=== PATIENT | female | born 1950 | race Caucasian/White ===

== ENCOUNTER 2016-06-03 07:59 | Day surgery (SDC) | payer OTHER, MEDICARE ==
[2016-06-03] VITALS (9 sets, daily range): BP systolic 90–136; BP diastolic 46–69; PULSE 62–72; TEMP 36.7–37; O2SAT 95–99; Ht 154.9 cm; Wt 75.0 kg
[~2016-06-03] VITALS: Ht 154.9 cm; Wt 75.0 kg
[~2016-06-03 07:59] MED LIST: ASPCH81 PO; CYTM5 PO; DICL50TA3 PO; FLAX1CAP11 PO; GLC/500 PO; SYN25 PO; VERA120T15 PO
--- NOTE | 2016-06-03 10:08 | Discharge Instructions ---
Discharge Instructions Procedure Procedure Date: Jun 03, 2016. Reason for visit: Degenerative Disc Disease, Spinal Stenosis. Discharge Discharge Date: Jun 03, 2016. Discharge Diagnosis: Spinal stenosis. Instructions Activity Recommendations: 1 Day-May resume regular activity, 48 Hours of decreased exertion, 1 Day with no exercise/sex/sports Return to School/Work: limitations (light activity x 48 hours) Recommended Home Diet: Resume Previous Diet Provider Instructions: Fluoroscopic guided lumbar puncture is performed at the L4 laminectomy level. Intrathecal positioning was confirmed by return of CSF in the needle. Iodinated contrast was then injected into the thecal sac under fluoroscopic guidance and the patient went for CT myelogram. The procedure was well tolerated and without immediate complication. Allergies Coded Allergies: Indigotindisulfonate (Verified Allergy, Mild, RASH,ITCHING, 06/03/16) Roxanne Babcock Recommendations: Call your doctor if: * Temperature above 101 degrees * Pain not relieved by pain medicine ordered * There is increased drainage or redness from any incision * You have any unanswered questions or concerns. Your Doctors Instructions noted above were prepared by provider Don Jerry. Patient Signature Section: Patient Instructions Signature Page Erica Tavera Patient (or Guardian) Signature/Date: I have read and understand the instructions given to me by my caregivers. Caregiver/RN/Doctor Signature/Date: The above-named patient and/or guardian has received patient instructions on this date. + Original Patient Signature Page (only) stays with chart. Please make copy for patient.
[2016-06-03] MEDS ORDERED: ACETAMINOPHEN 500 MG TAB PO PRN (10:15)
--- NOTE | 2016-06-03 10:15 | DIAGNOSTIC IMAGING REPORT ---
FLUOROSCOPIC GUIDED LUMBAR PUNCTURE CLINICAL HISTORY: Degenerative disc disease. Spinal stenosis. Lumbar radiculopathy. Contrast injection for CT myelogram. PROCEDURE: The risks, benefits, and alternatives to the procedure is discussed with the patient who voiced understanding. Written informed consent was obtained. The patient was placed prone on the fluoroscopy table. The lower back was prepped and draped in the usual sterile fashion. 1% lidocaine was used for local anesthesia. A 20-gauge spinal needle was inserted into the L4 laminectomy space, and intrathecal positioning was confirmed by return of cervical spinal fluid into the hub of the needle. Isovue-200 was then injected into the thecal sac under fluoroscopic guidance which distended normally. The patient tolerated the procedure well. There were no immediate complications. The patient was then transported to CT for CT myelogram and within the observed in the medical treatment unit for further observation. Fluoroscopy time: 0.9 minutes. IMPRESSION: Fluoroscopic guided lumbar puncture with injection of contrast into the thecal sac for CT myelogram. There were no immediate complications. Electronically signed by: Don Jerry M.D. 06/03/2016 10:14 AM Dictated Date/Time: 06/03/2016 10:11 AM
--- NOTE | 2016-06-03 12:33 | DIAGNOSTIC IMAGING REPORT ---
CT MYELOGRAM OF THE LUMBAR SPINE CLINICAL HISTORY: Spinal stenosis. Back pain. Difficulty with ambulation. COMPARISON STUDY: CT mammogram of the lumbar spine dated 02/18/2015. TECHNIQUE: Following the intrathecal administration of iodinated contrast, CT myelogram of the lumbar spine is performed from the lower thoracic spine to the sacrum. Images reviewed in the axial, sagittal, coronal planes. CT DOSE: 783.81 mGy.cm FINDINGS: Lumbar spine: The skeletal structures are osteopenic. Vertebral body height and alignment are maintained throughout the lumbar spine. There is a mild chronic superior endplate compression deformity of T12. There is evidence of laminectomy and posterior fusion at L4-L5. The orthopedic hardware appears intact. There is no evidence of hardware loosening. Interposition bone graft material is noted. The remaining spinous processes and the transverse processes appear intact. There is no evidence of spondylolysis. No lytic or blastic lesions are seen. Anterior osteophytes are seen throughout. Intervertebral discs: There is evidence of discectomy at L5-S1. Mild to moderate degenerative disc space narrowing is seen at L2-L3 and L3-L4. The remaining disc spaces appear preserved. Central canal and spinal cord: The conus medullaris terminates at the level of L1. The nerve roots of the cauda equina are normal as imaged. There is no significant acquired compromise of the central canal. T12-L1: The central canal and neural foramina are widely patent. L1-L2: There is minimal posterior disc bulge eccentric to the right. There is no significant acquired compromise of the central canal. There is mild right-sided subarticular stenosis. The neural foramina are clear. L2-L3: There is a small posterior disc bulge. There is no significant acquired compromise of the central canal. The minimum AP diameter measures 12 mm. There is mild bilateral subarticular stenosis. The neural foramina appear patent. L3-L4: The central canal and neural foramina are patent. Mild facet arthropathy is of no consequence. L4-L5: A posterior osteophyte complex is seen eccentric to the left. The central canal is clear. The osteophyte contributes to left-sided subarticular stenosis. The neural foramina are widely patent. L5-S1: There is a small disc bulge eccentric to the left. The central canal is clear. There is mild left-sided subarticular stenosis. The neural foramina are patent. Mild facet arthropathy is of no consequence. Sacrum and bony pelvis: The imaged sacrum and bony pelvis appear intact. Sclerotic change is noted in the sacroiliac joints. Soft tissues: There is fatty atrophy of the paraspinous musculature. There is mild atherosclerotic calcification of the abdominal aorta which is normal in caliber. IMPRESSION: 1. There is no evidence of disc herniation or central canal stenosis. 2. There are postoperative changes from L4 to L5 spinal fusion. The orthopedic hardware appears intact. 3. Osteopenia and mild spondylotic change as above. See discussion for detailed level by level analysis. 4. A mild chronic superior endplate compression deformity of T12 is unchanged from 2015. Dictated: 06/03/2016 11:18 AM Transcribed: 06/03/2016 12:33 PM [place] Electronically signed by: Don Jerry M.D. 06/03/2016 12:41 PM Dictated Date/Time: 06/03/2016 11:18 AM
[2016-06-28] MEDS ORDERED: MULT-506 PO (13:57)
[2016-06-28] MEDS ORDERED: ERGO500037 PO (13:57)
== END 2016-06-03 14:05 | disposition home or self-care (01) ==
LOC: C.ACU 07:59
PROVIDERS: ATTEND Orthopaedic Surgery Orthopaedic Surgery of the Spine
DX: M51.36 Other intervertebral disc degeneration, lumbar region (principal); M48.06 Spinal stenosis, lumbar region; M54.16 Radiculopathy, lumbar region

== ENCOUNTER → 2016-07-10 | Outpatient (CLI) | payer OTHER, MEDICARE ==
[~2016-07-10] MED LIST changes: -DICL50TA3 PO; +ERGO500037 PO; +MULT-506 PO
[2016-07-10 09:29] LABS: BASO % 0.9 %; BASO ABS # 0.05 K/uL (0-0.2); COMPLETE YES; EOS % 4.3 %; HEMATOCRIT 41.5 % (37-47); IG% 0.2 %; LYMPH % 42.2 %; LYMPH ABS # 2.34 K/uL (1.2-3.4); MEAN CELL VOLUME 89.6 fL (80-100); MEAN CORPUSCULAR HGB CONC 33.5 g/dl (32-36); MEAN PLATELET VOLUME 11.8 fL (7.4-10.4); MONO % 8.1 %; NEUT % 44.3 %; PLATELET COUNT 195 K/uL (130-400); RED BLOOD COUNT 4.63 M/uL (4.2-5.4); WHITE BLOOD COUNT 5.55 K/uL (4.8-10.8)
[2016-07-10 09:50] LABS: ALT/SGPT 20 U/L (12-78); BLOOD UREA NITROGEN 9 mg/dl (7-18); CARBON DIOXIDE 28 mmol/L (21-32); CHLORIDE 108 mmol/L (98-107); CHOLESTEROL 191 mg/dl (0-200); CREATININE 0.81 mg/dl (0.60-1.20); GLUCOSE 88 mg/dl (70-99); POTASSIUM 4.4 mmol/L (3.5-5.1); SODIUM 144 mmol/L (136-145)
[2016-07-10 09:54] LABS: CALCIUM 9.3 mg/dl (8.5-10.1)
[2016-07-10 10:01] LABS: ALB/GLOB RATIO 1.3 (0.9-2); ALKALINE PHOSPHATASE 69 U/L (45-117); AST/SGOT 18 U/L (15-37); CHOLESTEROL/HDL RATIO 2.6; FERRITIN 15.8 ng/ml (8.0-388.0); HDL CHOLESTEROL 73 mg/dl; LDL CHOLESTEROL CALCULATED 97 mg/dl; THYROID STIMULATING HORMONE 0.972 uIu/ml (0.300-4.500); TRIGLYCERIDES 103 mg/dl (0-150); VERY LOW DENSITY LIPOPROT CALC 21 mg/dl
[2016-07-11 06:47] LABS: ESTIMATED AVERAGE GLUCOSE 117 mg/dl; HA1C FLAG Normal (Normal)
--- NOTE | 2016-07-14 10:36 | CODING QUERY MEDICAL NECESSITY ---
CQSUPPORTING DIAGNOSIS NEEDED A supporting diagnosis is required for the test/procedure performed on this patient in order for us to be reimbursed by the patient's insurance. Please provide a supporting diagnosis for the following test/procedure listed below next to the test name along with your signature. *If there is no additional diagnosis for this patient that would support the following test/procedure please document that below next to the test/procedure. Test(s)/Procedure(s) that require a supporting diagnosis: JONATAN 07/10/16 GLYCATED HEMOGLOBIN TEST Provider Signature: Date: Thank you Alma Delia Bonilla [facility] Information Management Once completed, please kindly fax back to [phone] For questions please call [phone]
== END | disposition home or self-care (01) ==
LOC: C.LAB 08:54
PROVIDERS: ATTEND Nurse Practitioner Family
DX: I10 Essential (primary) hypertension (principal); E78.00 Pure hypercholesterolemia, unspecified; E03.9 Hypothyroidism, unspecified; M81.0 Age-related osteoporosis without current pathological fracture; D51.0 Vitamin B12 deficiency anemia due to intrinsic factor deficiency; E88.81 Metabolic syndrome and other insulin resistance; J98.4 Other disorders of lung; E53.8 Deficiency of other specified B group vitamins

== ENCOUNTER → 2017-01-18 | Outpatient (CLI) | payer OTHER, MEDICARE ==
[2017-01-18 11:10] LABS: BLOOD UREA NITROGEN 13 mg/dl (7-18); CREATININE 0.71 mg/dl (0.60-1.20)
== END | disposition home or self-care (01) ==
LOC: C.LABBC 08:02
PROVIDERS: ATTEND Physician Assistant Medical
DX: Z01.812 Encounter for preprocedural laboratory examination (principal)

== ENCOUNTER → 2017-01-25 | Outpatient (CLI) | payer OTHER, MEDICARE ==
[~2017-01-25] MED LIST changes: +GADAVIST IV PRN
--- NOTE | 2017-01-25 09:56 | DIAGNOSTIC IMAGING REPORT ---
MRI LUMBAR SPINE COMBINATION CLINICAL HISTORY: LUMBAGO BILATERAL LEG NUMBNESS. HISTORY OF PRIOR SPINAL SURGERY. TECHNIQUE: Sagittal and axial T1, T2 and STIR images were obtained. COMPARISON STUDY: October 2006 OBSERVATIONS: The vertebral bodies and posterior elements appear intact. There is no abnormal bony signal present to suggest a marrow replacement process. There is an old superior endplate T12 compression fracture. L1-2: No disc protrusions or extrusions. No evidence of spinal canal or neural foraminal compromise. L2-3: There is a minor circumferential disc bulge asymmetric laterally on the left. There is no significant spinal or foraminal stenosis L3-4: There is a minimal circumferential disc bulge. There is no significant spinal or foraminal stenosis L4-5: There are postsurgical changes of a discectomy and interbody fusion. There are postlaminectomy changes. There is posterior fusion with L4 and L5 pedicle screws. There is no recurrent disc herniation. There is no spinal or foraminal stenosis. L5-S1: No disc protrusions or extrusions. No evidence of spinal canal or neural foraminal compromise. The conus medullaris and cauda equina appear normal. Postcontrast images reveal no pathologically enhancing lesions. There is mild ectasia of the infrarenal abdominal aorta which measures 26 mm. IMPRESSION: 1. Mild multilevel spondylitic changes 2. Postsurgical changes at the L4-5 level 3. No evidence of focal disc herniation. No evidence of spinal or foraminal stenosis. Electronically signed by: Juan Desouza M.D. 01/25/2017 9:55 AM Dictated Date/Time: 01/25/2017 9:48 AM
== END | disposition home or self-care (01) ==
LOC: C.MRIBC 08:25
PROVIDERS: ATTEND Physician Assistant Medical
DX: M54.5 Low back pain (principal)

== ENCOUNTER → 2017-02-02 | Outpatient (CLI) | payer OTHER, MEDICARE ==
[~2017-02-02] MED LIST changes: -GADAVIST IV PRN
[2017-02-02 11:04] LABS: BASO % 0.5 %; BASO ABS # 0.03 K/uL (0-0.2); COMPLETE YES; EOS % 3.8 %; HEMATOCRIT 43.2 % (37-47); IG% 0.3 %; LYMPH % 36.2 %; LYMPH ABS # 2.26 K/uL (1.2-3.4); MEAN CELL VOLUME 91.9 fL (80-100); MEAN CORPUSCULAR HEMOGLOBIN 29.8 pg (25-34); MEAN CORPUSCULAR HGB CONC 32.4 g/dl (32-36); MEAN PLATELET VOLUME 12.5 fL (7.4-10.4); MONO % 8.3 %; NEUT % 50.9 %; PLATELET COUNT 205 K/uL (130-400); WHITE BLOOD COUNT 6.25 K/uL (4.8-10.8)
== END | disposition home or self-care (01) ==
LOC: C.LABBC 07:41
PROVIDERS: ATTEND Nurse Practitioner Family
DX: D51.0 Vitamin B12 deficiency anemia due to intrinsic factor deficiency (principal); E53.8 Deficiency of other specified B group vitamins; R22.30 Localized swelling, mass and lump, unspecified upper limb

== ENCOUNTER → 2017-03-08 | Outpatient (CLI) | payer OTHER, MEDICARE ==
[~2017-03-08] MED LIST changes: +ASPI-435 PO; +CHOLPOW PO; +CYAN1DRO SC; +LEVO50TA PO; +LIOT5TAB9 PO; +TRMO115 TOP
== END | disposition home or self-care (01) ==
LOC: C.LABBC 07:37
PROVIDERS: ATTEND Nurse Practitioner Family
DX: E03.9 Hypothyroidism, unspecified (principal)

== ENCOUNTER → 2017-07-21 | Outpatient (CLI) | payer OTHER, MEDICARE ==
[~2017-07-21] MED LIST changes: -ASPI-435 PO; -CHOLPOW PO; -CYAN1DRO SC; -LEVO50TA PO; -LIOT5TAB9 PO; -TRMO115 TOP
[2017-07-21 13:49] LABS: BASO % 0.6 %; BASO ABS # 0.04 K/uL (0-0.2); EOS % 3.6 %; EOS ABS # 0.23 K/uL (0-0.5); HEMATOCRIT 40.4 % (37-47); HEMOGLOBIN 13.3 g/dL (12.0-16.0); IG# 0.01 K/uL (0.00-0.02); LYMPH % 48.5 %; LYMPH ABS # 3.08 K/uL (1.2-3.4); MEAN CELL VOLUME 87.3 fL (80-100); MEAN CORPUSCULAR HEMOGLOBIN 28.7 pg (25-34); MEAN CORPUSCULAR HGB CONC 32.9 g/dl (32-36); MEAN PLATELET VOLUME 12.1 fL (7.4-10.4); MONO % 6.9 %; MONO ABS # 0.44 K/uL (0.11-0.59); NEUT % 40.2 %; NEUT ABS # 2.55 K/uL (1.4-6.5); PLATELET COUNT 185 K/uL (130-400); RED CELL DISTRIBUTION WIDTH CV 14.7 % (11.5-14.5); RED CELL DISTRIBUTION WIDTH SD 46.8 fL (36.4-46.3); WHITE BLOOD COUNT 6.35 K/uL (4.8-10.8)
[2017-07-21 14:06] LABS: T3 FREE 4.51 pg/ml (2.30-4.20)
[2017-07-21 14:11] LABS: ALBUMIN 3.7 gm/dl (3.4-5.0); ALKALINE PHOSPHATASE 89 U/L (45-117); ALT/SGPT 27 U/L (12-78); AST/SGOT 24 U/L (15-37); BLOOD UREA NITROGEN 7 mg/dl (7-18); CALCIUM 8.8 mg/dl (8.5-10.1); CARBON DIOXIDE 28 mmol/L (21-32); CHOLESTEROL 179 mg/dl (0-200); CREATININE 0.76 mg/dl (0.60-1.20); GLUCOSE 86 mg/dl (70-99); LDL CHOLESTEROL CALCULATED 98 mg/dl; POTASSIUM 3.8 mmol/L (3.5-5.1); SODIUM 142 mmol/L (136-145); TOTAL PROTEIN 6.9 gm/dl (6.4-8.2)
== END | disposition home or self-care (01) ==
LOC: C.LABBC 09:41
PROVIDERS: ATTEND Nurse Practitioner Family
DX: I10 Essential (primary) hypertension (principal); E78.00 Pure hypercholesterolemia, unspecified; E03.9 Hypothyroidism, unspecified; M81.0 Age-related osteoporosis without current pathological fracture; D51.0 Vitamin B12 deficiency anemia due to intrinsic factor deficiency; E88.81 Metabolic syndrome and other insulin resistance; E53.8 Deficiency of other specified B group vitamins; K58.0 Irritable bowel syndrome with diarrhea

== ENCOUNTER → 2017-09-22 | Outpatient (CLI) | payer OTHER, MEDICARE ==
[~2017-09-22] MED LIST changes: +ASPI-435 PO; +CHOLPOW PO; +CYAN1DRO SC; +LEVO50TA PO; +LIOT5TAB9 PO; +TRMO115 TOP
== END | disposition home or self-care (01) ==
LOC: C.LAB1850 12:19
PROVIDERS: ATTEND Nurse Practitioner Family
DX: E03.9 Hypothyroidism, unspecified (principal)

== ENCOUNTER → 2017-10-06 | Day surgery (SDC) | payer OTHER, MEDICARE ==
[2017-09-28 12:10] VITALS: Ht 154.9 cm; Wt 68.2 kg
[~2017-10-06] VITALS: Ht 154.9 cm; Wt 68.2 kg
[~2017-10-06] MED LIST changes: -ASPCH81 PO; -CYTM5 PO; +LIDOCAINE HCL 2% 2 ML VIAL (20MG/ML) ONE; +PROPOFOL IV EMULSION 10 MG/ML 20 ML VIAL ONE; +SODIUM CHLORIDE 0.9% 500ML 500 ML IV ONE; -SYN25 PO
--- NOTE | 2017-10-06 13:40 | Endo History and Physical ---
History & Physical Date of Service: Oct 06, 2017. Chief Complaint: Diarrhea Referring Physician: MARIALUISA Harris History of Present Illness 67 yo CF who presents for colonoscopy secondary to diarrhea. Past Medical History Diabetes, Arthritis, Hypertension, COPD, Thyroid Disease Past Surgical History Hx Cardiac Surgery: No Hx Internal Defibrillator: No Hx Pacemaker: No Hx Abdominal Surgery: Yes (hyster, appy, mata, x 2, oopherectomy ( unsure which side)) Hx of Implantable Prosthesis: No Hx Post-Op Nausea and Vomiting: No Hx Cancer Surgery: Yes (skin cancer) Hx Thoracic Surgery: No Hx Orthopedic: Yes (lumbar sx) Hx Urinary Tract Surgery: No Family History None Social History Smoking Status: Never Smoker Hx Substance Use: No Hx Alcohol Use: No Allergies Coded Allergies: Indigotindisulfonate (Verified Allergy, Mild, RASH,ITCHING, 09/28/17) Current Medications Reported Home Medications Medications Dose Route/Sig Max Daily Dose Days Date Category Vitamin B12 (Cyanocobalamin) 3,000 Mcg/Ml Brennon 1 Ml SC MONTHLY 09/28/17 Reported Triamcinolone Acetonide (Triamcinolone Acet) 45 Appln/15 Gm Oint 1 Appln TOP BID 09/28/17 Reported Cholestyramine (Cholestyramine (Bulk)) 1 Pow Pow 4 Gm PO DAILY 09/28/17 Reported Synthroid (Levothyroxine Sodium) 50 Mcg Tab 50 Mcg PO DAILY 09/28/17 Reported Liothyronine Sodium 5 Mcg Tab 1 Tab PO DAILY 09/28/17 Reported Aspirin 81 (Aspirin) 81 Mg Tab 1 Tab PO DAILY 09/28/17 Reported Multivitamin (Multivitamins) Tab 1 Tab PO DAILY 06/28/16 Reported Vitamin D 06601 Unit (Ergocalciferol) 50,000 Unit Cap 1 Cap PO WK 28 06/28/16 Reported Flax Seed Oil (Flaxseed (Linseed)) 1 Cap Cap 1 Cap PO BID 05/18/15 Reported Glucophage (Metformin Hcl) 500 Mg Tab 500 Mg PO BID 05/18/15 Reported Calan (Verapamil HCl) 120 Mg Tab 120 Mg PO BID 06/25/10 Reported Vital Signs Weight (Kilograms): 68.18 Height (Feet): 5 Height (Inches): 1 Date Time Temp Pulse Resp B/P (MAP) Pulse Ox O2 Delivery O2 Flow Rate FiO2 10/06/17 13:11 36.9 54 16 134/73 (93) 97 Room Air Physical Exam General Appearance: WD/WN, no apparent distress Respiratory/Chest: Auscultation: breath sounds normal Cardiovascular: Heart Auscultation: RRR Abdomen: Bowel Sounds: normal Inspection & Palpation: soft, non-distended, no tenderness, guarding & rebound Assessment and Plan Assessment: 67 yo CF who presents for colonoscopy secondary to diarrhea. Plan: Proceed with colonoscopy.
--- NOTE | 2017-10-06 14:06 | Discharge Instructions ---
Endoscopy Patient Instructions Date / Procedure(s) Performed Oct 06, 2017. Colonoscopy Allergy Information Coded Allergies: Indigotindisulfonate (Verified Allergy, Mild, RASH,ITCHING, 09/28/17) Discharge Date / Findings Oct 06, 2017. Internal hemorrhoids Random colon biopsies Medication Instructions Stopped Medication(s): Patient was told to take her 2 thyroid pills and her verapamil. Internal hemorrhoids Random colon biopsies Provider Instructions Activity Restrictions - No exercising or heavy lifting for 24 hours. - Do not drink alcohol the day of the procedure. - Do not drive a car or operate machinery until the day after the procedure. - Do not make any important decisions or sign important papers in 24 hours after the procedure. Following Day: - Return to full activity which may include returning to work/school. Diet Start your diet with liquids and light foods (jello, soup, juice, toast). Then eat your usual diet if not nauseated. Treatment For Common After Affects For mild abdominal pain, bloating, or excessive gas: - Rest - Eat lightly - Lie on right side Follow-Up Information Follow-up with MARIALUISA Harris as scheduled Anesthesia Information What You Should Know You have had a procedure that required some medicine to reduce anxiety and discomfort. This treatment is called moderate sedation. After receiving the treatment, you may be sleepy, but you will be able to breathe on your own. The effects of the treatment may last for several hours. Follow these instructions along with Activity/Diet recommendations noted above: * Do NOT do anything where dizziness or clumsiness would be dangerous. * Rest quietly at home today, then you can be up and about tomorrow. * Have a responsible person stay with you the rest of today. * You may have had an I.V. today. If so, you may take the dressing off later today. Recommendations Call your doctor if: * Trouble breathing * Continuous vomiting for more than 24 hours * Temperature above 101 degrees * Severe abdominal pain or bloating * Pain not relieved by pain medicine ordered * There is increased drainage or redness from any incision * A large amount of rectal bleeding greater than 2-3 tablespoons. (If you had a polyp/s removed or have hemorrhoids, a small amount of blood - from the rectum is to be expected.) * You have any unanswered questions or concerns. IN THE EVENT OF A SERIOUS EMERGENCY, GO TO THE NEAREST EMERGENCY ROOM Your discharge instructions were prepared by provider Gilmer Green. Patient Instructions Signature Page Erica Tavera Patient (or Guardian) Signature/Date: I have read and understand the instructions given to me by my caregivers. Caregiver/RN/Doctor Signature/Date: The above-named patient and/or guardian has received patient instructions on this date. + Original Patient Signature Page (only) stays with chart. Please make copy for patient.
--- NOTE | 2017-10-06 14:11 | GI REPORT ---
Patient Name: Erica Tavera Procedure Date: 10/06/2017 1:47 PM Date of : 1950 Admit Type: Outpatient Age: 67 Gender: Female Attending MD: Gilmer Green DO Procedure: Colonoscopy Providers: Gilmer Green DO Referring MD: Dorcas Schultz Indications: Chronic diarrhea Medicines: Monitored Anesthesia Care Complications: No immediate complications. Estimated Blood Loss: Estimated blood loss: none. Procedure: Pre-Anesthesia Assessment: - Prior to the procedure, a History and Physical was performed, and patient medications and allergies were reviewed. The patient's tolerance of previous anesthesia was also reviewed. The risks and benefits of the procedure and the sedation options and risks were discussed with the patient. All questions were answered, and informed consent was obtained. Prior Anticoagulants: The patient has taken aspirin, last dose was 2 days prior to procedure. ASA Grade Assessment: III - A patient with severe systemic disease. After reviewing the risks and benefits, the patient was deemed in satisfactory condition to undergo the procedure. After I obtained informed consent, the scope was passed under direct vision. Throughout the procedure, the patient's blood pressure, pulse, and oxygen saturations were monitored continuously. The scope was introduced through the anus and advanced to the terminal ileum. The colonoscopy was performed without difficulty. The patient tolerated the procedure well. The quality of the bowel preparation was good. The terminal ileum, ileocecal valve, appendiceal orifice, and rectum were photographed. Findings: The perianal and digital rectal examinations were normal. Non-bleeding internal hemorrhoids were found during retroflexion. The hemorrhoids were small. Several random biopsies were obtained with cold forceps for histology in the entire colon. Impression: - Non-bleeding internal hemorrhoids. - Several random biopsies were obtained in the entire colon. Recommendation: - Resume previous diet. - Continue present medications. - Repeat colonoscopy for surveillance based on pathology results. - Return to primary care physician as previously scheduled. Gilmer Green DO 10/06/2017 2:10:16 PM This report has been signed electronically. Note Initiated On: 10/06/2017 1:47 PM Number of Addenda: 0 I attest to the content of the Intraoperative Record and orders documented therein, exceptions below {[id number]}
--- NOTE | 2017-10-06 14:20 | Anesthesiology Progress Note ---
Anesthesia Post Op Note Date & Time Oct 06, 2017 at 14:20 Vital Signs Pain Intensity: 0 Vital Signs Past 12 Hours Date Time Temp Pulse Resp B/P (MAP) Pulse Ox O2 Delivery O2 Flow Rate FiO2 10/06/17 14:11 60 16 109/58 (75) 96 Room Air 10/06/17 13:11 36.9 54 16 134/73 (93) 97 Room Air Notes Mental Status: alert / awake / arousable, participated in evaluation Pt Amnestic to Procedure: Yes Nausea / Vomiting: adequately controlled Pain: adequately controlled Airway Patency, RR, SpO2: stable & adequate BP & HR: stable & adequate Hydration State: stable & adequate Anesthetic Complications: no major complications apparent
[2017-10-06 14:40] VITALS: BP 128/69; PULSE 50; O2SAT 98
== END | disposition home or self-care (01) ==
LOC: C.GI 11:31
PROVIDERS: ATTEND Internal Medicine
DX: R19.7 Diarrhea, unspecified (principal); K64.8 Other hemorrhoids; I10 Essential (primary) hypertension; E11.9 Type 2 diabetes mellitus without complications; M19.90 Unspecified osteoarthritis, unspecified site; J44.9 Chronic obstructive pulmonary disease, unspecified; E07.9 Disorder of thyroid, unspecified; Z90.49 Acquired absence of other specified parts of digestive tract; Z90.710 Acquired absence of both cervix and uterus; Z85.828 Personal history of other malignant neoplasm of skin; Z79.82 Long term (current) use of aspirin

== ENCOUNTER 2019-04-04 05:05 | Inpatient (IN) ==
--- NOTE | 2019-03-08 08:17 | PAT Medication Instructions ---
Medication Instructions Date of Service March 08, 2019 Home Medications Medication Instructions Recorded ergocalciferol (vitamin D2) 50,000 50,000 units PO WEEKLY #5 cap 11/14/18 unit capsule metformin 500 mg tablet 500 mg PO BID #180 tab 01/21/19 verapamil 120 mg tablet,extended 120 mg PO BID #180 tab 01/21/19 release aspirin 81 mg tablet,delayed release 81 mg PO DAILY flaxseed oil 1,000 mg capsule 1,000 mg PO BID cholestyramine 4 gram powder for susp in a packet 4 gm PO QAM naproxen 500 mg tablet 500 mg PO BID PRN ergocalciferol (vitamin D2) 50,000 unit capsule 50,000 units PO WEEKLY metformin 500 mg tablet 500 mg PO BID verapamil 120 mg tablet,extended release 120 mg PO BID ferrous sulfate [Slow Release Iron] 140 mg PO DAILY levothyroxine 50 mcg PO QAM liothyronine 5 mcg PO QAM multivitamin 1 cap PO DAILY ASK your surgeon for instructions naproxen 500 mg tablet 500 mg PO BID PRN STOP taking 2 weeks before surgery If surgery is within 2 weeks, stop taking as soon as possible. flaxseed oil 1,000 mg capsule 1,000 mg PO BID STOP taking 48 hours before surgery cholestyramine 4 gram powder for susp in a packet 4 gm PO QAM DO NOT take the morning of surgery aspirin 81 mg tablet,delayed release 81 mg PO DAILY ergocalciferol (vitamin D2) 50,000 unit capsule 50,000 units PO WEEKLY metformin 500 mg tablet 500 mg PO BID ferrous sulfate [Slow Release Iron] 140 mg PO DAILY multivitamin 1 cap PO DAILY Take morning of surgery With a small sip of water, OTHERWISE NOTHING TO EAT OR DRINK AFTER MIDNIGHT: aspirin 81 mg tablet,delayed release 81 mg PO DAILY verapamil 120 mg tablet,extended release 120 mg PO BID levothyroxine 50 mcg PO QAM liothyronine 5 mcg PO QAM Take evening before surgery metformin 500 mg tablet 500 mg PO BID verapamil 120 mg tablet,extended release 120 mg PO BID Insulin Dependent Diabetic Patients * Test your blood sugar the morning of surgery * If Blood Sugar is GREATER THAN 150, take HALF of your regular dose of: * If Blood Sugar is LESS THAN 150, DO NOT TAKE ANY: Other Notes If you have any questions please call us at [phone] or [phone] or [phone] or [phone]
--- NOTE | 2019-03-08 15:19 | Anesthesiology Consultation ---
Date of Service March 08, 2019 Assessment & Plan (1) Encounter for pre-operative examination: Chart Review Chart Review: Acceptable Risk for Surgery and Patient seen in Pre Admission Testing Teaching & Discussion Instructed NPO after midnight before surgery, except medications with 15 cc of water. Medication instructions provided according to the PAT guidelines. History Surgery Operation Date: 04/04/19 07:15 Proposed Procedures p Left Total Hip Arthroplasty - jB Godwin MD Height/Weight Height: 5 ft Weight: 63.6 kg Allergies Allergy/AdvReac Type Severity Reaction Status Date / Time indigotindisulfonic acid Allergy Unknown RASH,ITCHIN Verified 03/01/19 08:13 G Medications Home Medications Medication Instructions Recorded Confirmed Last Taken aspirin 81 mg tablet,delayed 81 mg PO DAILY 07/13/18 03/01/19 Unknown release flaxseed oil 1,000 mg capsule 1,000 mg PO BID 08/10/18 03/01/19 Unknown cholestyramine (with sugar) 4 gram 4 gm PO QAM #1 ea 11/13/18 03/01/19 Unknown powder for susp in a packet naproxen 500 mg tablet 500 mg PO BID PRN 11/13/18 03/01/19 Unknown ergocalciferol (vitamin D2) 50,000 50,000 units PO WEEKLY #5 cap 11/14/18 03/01/19 Unknown unit capsule metformin 500 mg tablet 500 mg PO BID #180 tab 01/21/19 03/01/19 Unknown verapamil 120 mg tablet,extended 120 mg PO BID #180 tab 01/21/19 03/01/19 Unknown release ferrous sulfate [Slow Release Iron] 140 mg PO DAILY 03/01/19 03/01/19 Unknown levothyroxine 50 mcg PO QAM 03/01/19 03/01/19 Unknown liothyronine 5 mcg PO QAM 03/01/19 03/01/19 Unknown multivitamin 1 cap PO DAILY 03/01/19 03/01/19 Unknown Past Medical History Medical History (Updated 03/11/19 @ 09:24 by Kristopher Tse) Family history of reaction to anesthesia SON HAD REACTION TO ANESTHESIA DURING WISDOM TEETH PROCEDURE (DETAILS UNKNOWN) IN DENTAL OFFICE, HAD TO STOP PROCEDURE AND R/S FOR OUTPATIENT PROCEDURE (DONE [facility] - 20 YRS AGO ) Hiatal hernia (Chronic) PT DENIES History of basal cell carcinoma (Chronic) History of SCC (squamous cell carcinoma) of skin (Resolved) Hypertension (Chronic) Hypothyroidism (Chronic) HASHIMOTOS Insulin resistance Irritable bowel syndrome with diarrhea (Chronic) Osteoarthritis (Chronic) Palpitations (Resolved) Peripheral neuropathy (Chronic) R LEG CHRONIC Pernicious anemia (Chronic) CHRONIC ANEMIA SOB (shortness of breath) WHEN B12 IS LOW Vitamin B12 deficiency (Chronic) Exercise / Class Metabolic Activity II 4-5 Yardwork/Stairs/Walk up hill (Denies CP or SOB with 1 FOS, just limited by leg pain) Past Family History Family History Son Diabetes Mother Lung cancer Sister Malignant melanoma Past Surgical History Surgical History History of appendectomy (Resolved) History of section (Resolved) History of cholecystectomy (Resolved) History of colonoscopy History of hysterectomy (Resolved) History of laparoscopy (Resolved) History of lumbar fusion (Resolved) L4-5 Past Anesthesia History No Hx of Anesthesia Complications See note above re: son. Patient is unsure of details. Patient has had GA without issues. Aliza august @ [facility] 2011 = Smooth IV induction with MAC 3, grade view I, ETT 7.0 History of PONV No Hx of PONV and No Hx of Motion Sickness Social History Smoking Status: Never smoker Do You Dip or Chew Tobacco: No Hx Alcohol Use: No Hx Substance Use: No substance use type: does not use Review of Systems Pt denies any recent chest pain, shortness of breath, palpitations, cough, fever or URI. Physical Exam Vital Signs BP: 123/72 P: 69bpm SPO2: 96% RA T: 98.3 F R: 16 ENMT Mouth: + dental restorations (few crowns on molars); no chipped teeth and no loose teeth Thyromental Distance: > or= 3.5 Finger Breadths (3.5) Mallampati Class: II Neck normal visual inspection and + limited neck extension Respiratory normal respiratory effort Auscultation: lungs clear to auscultation bilaterally Cardiovascular Rate/Rhythm: regular rate and regular rhythm (with occ ectopic beats) Heart Sounds: no murmur Vessels: no carotid bruit Extremities: no edema Testing Laboratory Results 03/08/19 15:04 03/08/19 15:02 PT 10.1 Seconds (9.0-12.0) 03/08/19 15:04 INR 1.0 (0.9-1.1) 03/08/19 15:04 APTT 27.7 Seconds (21.0-31.0) 03/08/19 15:04 Hemoglobin A1c 5.5 % (4.5-5.6) 03/08/19 15:04 Urine Color Yellow 03/08/19 15:04 Urine Appearance Clear (Clear) 03/08/19 15:04 Urine pH 5.5 (4.5-7.5) 03/08/19 15:04 Ur Specific [place] 1.015 (1.000-1.030) 03/08/19 15:04 Urine Protein Negative (Negative) 03/08/19 15:04 Urine Glucose (UA) Negative (Negative) 03/08/19 15:04 Urine Ketones Negative (Negative) 03/08/19 15:04 Urine Nitrite Negative (Negative) 03/08/19 15:04 Ur Leukocyte Esterase Negative (Negative) 03/08/19 15:04 Blood Type O Positive 03/08/19 15:04 Antibody Screen NEGATIVE 03/08/19 15:04 03/08/19 15:04 Urine Culture - Final Urine,Clean Catch No growth - less than 1,000 colonies/mL. Electrocardiogram Date: 03/08/19 Findings: + SB @ (57bpm with PACs) Otherwise normal EKG. Compared to EKG from 01/07/10, PACs are now present.
[2019-03-08 15:55] LABS: Appearance Urine Clear (Clear); Basophils # (auto) 0.04 K/uL (0-0.2); Basophils % (auto) 0.5 %; Bilirubin Urine Negative (Negative); Blood Urine Negative (Negative); Color Urine Yellow; Eosinophils # (auto) 0.22 K/uL (0-0.5); Eosinophils % (auto) 2.5 %; Glucose Urine UA Negative (Negative); Hematocrit (blood only) 37.9 % (37-47); Hemoglobin 12.2 g/dL (12.0-16.0); Immature Granulocytes # (auto) 0.02 K/uL (0.00-0.02); Immature Granulocytes % (auto) 0.2 %; Ketones Urine Negative (Negative); Leukocyte Esterase Urine Negative (Negative); Lymphocytes # (auto) 3.45 K/uL (1.2-3.4); Mean Corpuscular Hemoglobin 29.6 pg (25-34); Mean Corpuscular Hgb Conc 32.2 g/dL (32-36); Mean Platelet Volume 12.2 fL (7.4-10.4); Monocytes # (auto) 0.63 K/uL (0.11-0.59); Monocytes % (auto) 7.3 %; Neutrophils # (auto) 4.27 K/uL (1.4-6.5); Neutrophils % (auto) 49.5 %; Nitrite Urine Negative (Negative); Platelet Count 215 K/uL (130-400); Protein Urine Negative (Negative); RDW Coefficient of Variation 13.8 % (11.5-14.5); RDW Standard Deviation 46.3 fL (36.4-46.3); Red Blood Count 4.12 M/uL (4.2-5.4); Specific Gravity Urine 1.015 (1.000-1.030); Urobilinogen Urine Negative (Negative); White Blood Count 8.63 K/uL (4.8-10.8); pH Urine 5.5 (4.5-7.5)
[2019-03-08 15:58] LABS: Albumin Level 3.8 gm/dl (3.4-5.0); BUN Creatinine Ratio 16.2 (10-20); Calcium 9.5 mg/dl (8.5-10.1); Creatinine Clr Calc Pharmacy 55.9 ml/min; Est GFR (African American) 89.3; Potassium 3.6 mmol/L (3.5-5.1)
[2019-03-08 16:01] LABS: Albumin Globulin Ratio 1.3 (0.9-2); Bilirubin,Total 0.4 mg/dl (0.2-1); Total Protein 6.8 gm/dl (6.4-8.2)
[2019-03-08 16:08] LABS: Partial Thromboplastin Time 27.7 Seconds (21.0-31.0); Prothrombin Time 10.1 Seconds (9.0-12.0)
--- NOTE | 2019-03-08 16:43 | History & Physical Report ---
Date of Service March 08, 2019 Assessment & Plan (1) Osteoarthritis of left hip: DIAGNOSIS: Left hip osteoarthritis. PROCEDURE: Left total hip arthroplasty. PLAN: The patient is scheduled to undergo this procedure at the [facility] as an inpatient with Dr. Bj Godwin on 04/04/2019. Risks and complications of the procedure such as infection, bleeding, pain, scarring, nerve and blood vessel damage, weakness, wound problems, stiffness, incomplete relief of symptoms, hardware failure, hardware loosening, wear, fracture, tendon or ligament injury, dislocation, leg length inequality, blood clots, embolism, heart attack, stroke and were explained to the patient at her visit by Dr. Godwin today. Informed consent to perform the procedure was obtained. We will also obtain a preoperative medical clearance from the patient's primary care provider, MARIALUISA Harris. She has an appointment with Carlos on 03/20. I did provide her with orders to obtain a CBC with differential, complete metabolic panel, PT, INR, blood type and screen, urinalysis, urine culture, EKG, hemoglobin A1c and a nasal culture for MRSA before her pre-anesthesia appointment at the hospital today at 2:30. I advised her that we will provide her with prescriptions for narcotic pain medication and anti-inflammatory medication. We will have her increase her daily aspirin to twice daily for 30 days postoperatively and discussed supplementation with extra strength Tylenol for pain control following surgery. The patient states she has a walker, she will bring with her on the day of surgery. She also states that she may have a hip kit at home from her mother. I went over discharge planning with the patient. We reviewed her packet in regards to hip replacement surgery. I discussed using antibiotics before dental procedures after joint replacement surgery. I also provided her with information about lectures offered by [facility] in regards to arthroplasty. The patient states she has a handicap placard for her car, does not need a new one. She will be scheduled for her 2-week postoperative followup with myself on 04/17 at 11:15 a.m. At that time, we will discuss outpatient physical therapy and I will provide her with a protocol. The patient states that she will most likely want to receive in-home therapy upon discharge from the hospital. The patient verbalized understanding of all information provided during today's visit, thanked us for the care she has received and states if she has questions or concerns that should arise prior to her surgery date, she will contact the clinic accordingly. History of Present Illness Chief Complaint: Left hip osteoarthritis Primary Care Provider: Carlos Crawford III, CRNP HISTORY OF PRESENT ILLNESS: This 68-year-old female presents to the clinic today for her preoperative history and physical. The patient complains of a 3- year history of left hip pain with an insidious onset that has become progressively worse over the past 6 months and is affecting the way that she ambulates. She has a severely antalgic gait. She states that it prevents her from walking long distances, doing yard work and she states that before the pain became persistent, she was able to walk 4-5 miles per day. The patient has seen Dr. Adams in our clinic and received ultrasound-guided hip injections in the past. She states that her most recent injection and the use of Medrol Dosepak did not alleviate her pain whatsoever. The patient has tried physical therapy in the past, which did not help and exacerbated her pain. She states that the pain has been so debilitating that she has great difficulty transitioning from a seated to a standing position and then walking. She refers most of the pain to her groin area. The patient states that she is ready to undergo a total hip arthroplasty. 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 PAST SURGICAL HISTORY: section x2, ovarian excision, hysterectomy, appendectomy, lumbar fusion, ganglion cyst excision and cholecystectomy. FAMILY HISTORY: Positive for melanoma. ALLERGIES: The patient has no known drug allergies; however, she does have AN ALLERGY TO INDIGO DYE, WHICH CAUSES A RASH. CURRENT MEDICATIONS USED: Aspirin 81 mg oral delayed release tablet daily, flaxseed oil oral capsule 2 caps daily, hydroquinone 4% topical cream 1 ap plication twice daily for 2 months, levothyroxine 50 mcg oral tablet daily, liothyronine 5 mcg oral tablet daily, metformin 500 mg tablet twice daily, multivitamin 1 tablet daily, Slow Fe 45 mg oral tablet extended release 1 tab daily, verapamil 120 mg/12 hour oral tablet extended release 2 tabs daily, vitamin B12 1000 mcg/mL injectable solution 1000 mcg intramuscularly each month, vitamin D2 50,000 international unit oral capsule 1 cap every 7 days. SOCIAL HISTORY: The patient denies a history of alcohol, illicit drug or tobacco use. Allergies Allergy/AdvReac Type Severity Reaction Status Date / Time indigotindisulfonic acid Allergy Unknown RASH,ITCHIN Verified 03/01/19 08:13 G Home Medications Home Medications Medication Instructions Recorded Confirmed Type aspirin 81 mg tablet,delayed 81 mg PO DAILY 07/13/18 03/01/19 History release flaxseed oil 1,000 mg capsule 1,000 mg PO BID 08/10/18 03/01/19 History cholestyramine (with sugar) 4 gram 4 gm PO QAM #1 ea 11/13/18 03/01/19 History powder for susp in a packet naproxen 500 mg tablet 500 mg PO BID PRN 11/13/18 03/01/19 History ergocalciferol (vitamin D2) 50,000 50,000 units PO WEEKLY #5 cap 11/14/18 03/01/19 Rx unit capsule metformin 500 mg tablet 500 mg PO BID #180 tab 01/21/19 03/01/19 Rx verapamil 120 mg tablet,extended 120 mg PO BID #180 tab 01/21/19 03/01/19 Rx release ferrous sulfate [Slow Release Iron] 140 mg PO DAILY 03/01/19 03/01/19 History levothyroxine 50 mcg PO QAM 03/01/19 03/01/19 History liothyronine 5 mcg PO QAM 03/01/19 03/01/19 History multivitamin 1 cap PO DAILY 03/01/19 03/01/19 History Past Med/Surg History Medical History Family history of reaction to anesthesia SON HAD REACTION TO ANESTHESIA DURING WISDOM TEETH PROCEDURE (DETAILS UNKNOWN) IN DENTAL OFFICE, HAD TO STOP PROCEDURE AND R/S FOR OUTPATIENT PROCEDURE (DONE [facility] - 20 YRS AGO ) Hiatal hernia (Chronic) PT DENIES History of basal cell carcinoma (Chronic) History of SCC (squamous cell carcinoma) of skin (Resolved) Hypertension (Chronic) Hypothyroidism (Chronic) "HASHIMOTOS" Insulin resistance Irritable bowel syndrome with diarrhea (Chronic) Osteoarthritis (Chronic) Palpitations (Resolved) Peripheral neuropathy (Chronic) R LEG CHRONIC Pernicious anemia (Chronic) CHRONIC ANEMIA SOB (shortness of breath) WHEN B12 IS LOW Vitamin B12 deficiency (Chronic) Surgical History History of appendectomy (Resolved) History of section (Resolved) History of cholecystectomy (Resolved) History of colonoscopy History of hysterectomy (Resolved) History of laparoscopy (Resolved) History of lumbar fusion (Resolved) L4-5 Family History Son Diabetes Mother Lung cancer Sister Malignant melanoma Social History Preferred Language: Hungarian Communication Ability: Effective Coffee Bar Attendant Required: No Beliefs That Will Affect Care: None marital status: single Current Living Situation: Family Current Living Situation Comment: DAUGHTER AND HER CHILDREN current occupational status: employed current occupation: Employed at [id number] x4 years Feels Safe at Home: Yes Smoking Status: Never smoker Hx Alcohol Use: No Hx Substance Use: No Seatbelt Use: always Review of Systems All systems reviewed & are unremarkable except as noted in HPI & below Physical Exam Physical Exam: PHYSICAL EXAMINATION: Skin: The patient's skin is normal in appearance. No open skin lesions or discharge. Eyes: Pupils are equal and reactive to light and accommodating. Extraocular movements are intact. Throat: Posterior oropharynx is clear with absence of edema, erythema or exudate. Cardiovascular exam: The patient has a regular rate and rhythm with an occasional S3 gallop noted during auscultation. There were murmurs appreciated. Lungs: Auscultation of lung lang reveals clear breath sounds throughout, no wheezing, rales or rhonchi. Abdomen is nonobese, nondistended, nontender with normoactive bowel sounds. Extremities: Left hip, the patient has a positive log roll test, positive Stinchfield test. She has referred pain to the groin with flexion to 85 degrees, external rotation to 25 degrees and internal rotation to 10 degrees. EDER test causes referred groin pain and is 3-1/2 fists. The patient has tenderness to palpation over the anterior groin, palpable crepitation with passive range of motion. Her calf is soft and supple, nontender to palpation. She is neurovascularly intact in left lower extremity. Neurological exam: Cranial nerves 2-12 are intact with no motor or sensory deficit. Psychological/general exam: The patient is alert and oriented x3 with proper grooming and hygiene. Results & Data Laboratory Results 03/08/19 03/08/19 03/08/19 Range/Units 15:04 15:04 15:04 WBC (4.8-10.8) K/uL RBC (4.2-5.4) M/uL Hgb (12.0-16.0) g/dL Hct (37-47) % MCV (80-100) fL MCH (25-34) pg MCHC (32-36) g/dL RDW Std Deviation (36.4-46.3) fL RDW Coeff of Bailey (11.5-14.5) % Plt Count (130-400) K/uL MPV (7.4-10.4) fL Immature Gran % (Auto) % Neut % (Auto) % Lymph % (Auto) % Cotton % (Auto) % Eos % (Auto) % Baso % (Auto) % Immature Gran # (Auto) (0.00-0.02) K/uL Neut # (Auto) (1.4-6.5) K/uL Lymph # (Auto) (1.2-3.4) K/uL Cotton # (Auto) (0.11-0.59) K/uL Eos # (Auto) (0-0.5) K/uL Baso # (Auto) (0-0.2) K/uL PT (9.0-12.0) Seconds INR (0.9-1.1) APTT (21.0-31.0) Seconds PTT Ratio Sodium (136-145) mmol/L Potassium (3.5-5.1) mmol/L Chloride (98-107) mmol/L Carbon Dioxide (21-32) mmol/L Anion Gap (3-11) BUN (7-18) mg/dl Creatinine (0.6-1.2) mg/dl Est Cr Clr Drug Dosing ml/min Est GFR ( Amer) Est GFR (Non-Af Amer) BUN/Creatinine Ratio (10-20) Glucose (70-99) mg/dl Estimat Average Glucose Hemoglobin A1c Calcium (8.5-10.1) mg/dl Total Bilirubin (0.2-1) mg/dl AST (15-37) U/L ALT (12-78) U/L Alkaline Phosphatase (45-117) U/L Total Protein (6.4-8.2) gm/dl Albumin (3.4-5.0) gm/dl Globulin (2.5-4.0) gm/dl Albumin/Globulin Ratio (0.9-2) Urine Color Yellow Urine Appearance Clear (Clear) Urine pH 5.5 (4.5-7.5) Ur Specific [place] 1.015 (1.000-1.030) Urine Protein Negative (Negative) Urine Glucose (UA) Negative (Negative) Urine Ketones Negative (Negative) Urine Blood Negative (Negative) Urine Nitrite Negative (Negative) Urine Bilirubin Negative (Negative) Urine Urobilinogen Negative (Negative) Ur Leukocyte Esterase Negative (Negative) Nasal Screen MRSA (PCR) Pending Blood Type Pending Antibody Screen Pending 03/08/19 03/08/19 03/08/19 Range/Units 15:04 15:04 15:04 WBC 8.63 (4.8-10.8) K/uL RBC 4.12 L (4.2-5.4) M/uL Hgb 12.2 (12.0-16.0) g/dL Hct 37.9 (37-47) % MCV 92.0 (80-100) fL MCH 29.6 (25-34) pg MCHC 32.2 (32-36) g/dL RDW Std Deviation 46.3 (36.4-46.3) fL RDW Coeff of Bailey 13.8 (11.5-14.5) % Plt Count 215 (130-400) K/uL MPV 12.2 H (7.4-10.4) fL Immature Gran % (Auto) 0.2 % Neut % (Auto) 49.5 % Lymph % (Auto) 40.0 % Cotton % (Auto) 7.3 % Eos % (Auto) 2.5 % Baso % (Auto) 0.5 % Immature Gran # (Auto) 0.02 (0.00-0.02) K/uL Neut # (Auto) 4.27 (1.4-6.5) K/uL Lymph # (Auto) 3.45 H (1.2-3.4) K/uL Cotton # (Auto) 0.63 H (0.11-0.59) K/uL Eos # (Auto) 0.22 (0-0.5) K/uL Baso # (Auto) 0.04 (0-0.2) K/uL PT 10.1 (9.0-12.0) Seconds INR 1.0 (0.9-1.1) APTT 27.7 (21.0-31.0) Seconds PTT Ratio 1.0 Sodium (136-145) mmol/L Potassium (3.5-5.1) mmol/L Chloride (98-107) mmol/L Carbon Dioxide (21-32) mmol/L Anion Gap (3-11) BUN (7-18) mg/dl Creatinine (0.6-1.2) mg/dl Est Cr Clr Drug Dosing ml/min Est GFR ( Amer) Est GFR (Non-Af Amer) BUN/Creatinine Ratio (10-20) Glucose (70-99) mg/dl Estimat Average Glucose Pending Hemoglobin A1c Pending Calcium (8.5-10.1) mg/dl Total Bilirubin (0.2-1) mg/dl AST (15-37) U/L ALT (12-78) U/L Alkaline Phosphatase (45-117) U/L Total Protein (6.4-8.2) gm/dl Albumin (3.4-5.0) gm/dl Globulin (2.5-4.0) gm/dl Albumin/Globulin Ratio (0.9-2) Urine Color Urine Appearance (Clear) Urine pH (4.5-7.5) Ur Specific [place] (1.000-1.030) Urine Protein (Negative) Urine Glucose (UA) (Negative) Urine Ketones (Negative) Urine Blood (Negative) Urine Nitrite (Negative) Urine Bilirubin (Negative) Urine Urobilinogen (Negative) Ur Leukocyte Esterase (Negative) Nasal Screen MRSA (PCR) Blood Type Antibody Screen 03/08/19 Range/Units 15:02 WBC (4.8-10.8) K/uL RBC (4.2-5.4) M/uL Hgb (12.0-16.0) g/dL Hct (37-47) % MCV (80-100) fL MCH (25-34) pg MCHC (32-36) g/dL RDW Std Deviation (36.4-46.3) fL RDW Coeff of Bailey (11.5-14.5) % Plt Count (130-400) K/uL MPV (7.4-10.4) fL Immature Gran % (Auto) % Neut % (Auto) % Lymph % (Auto) % Cotton % (Auto) % Eos % (Auto) % Baso % (Auto) % Immature Gran # (Auto) (0.00-0.02) K/uL Neut # (Auto) (1.4-6.5) K/uL Lymph # (Auto) (1.2-3.4) K/uL [place] # (Auto) (0.11-0.59) K/uL Eos # (Auto) (0-0.5) K/uL Baso # (Auto) (0-0.2) K/uL PT (9.0-12.0) Seconds INR (0.9-1.1) APTT (21.0-31.0) Seconds PTT Ratio Sodium 141 (136-145) mmol/L Potassium 3.6 (3.5-5.1) mmol/L Chloride 108 H (98-107) mmol/L Carbon Dioxide 30 (21-32) mmol/L Anion Gap 4.0 (3-11) BUN 13 (7-18) mg/dl Creatinine 0.78 (0.6-1.2) mg/dl Est Cr Clr Drug Dosing 55.9 ml/min Est GFR ( Amer) 89.3 Est GFR (Non-Af Amer) 77.0 BUN/Creatinine Ratio 16.2 (10-20) Glucose 85 (70-99) mg/dl Estimat Average Glucose Hemoglobin A1c Calcium 9.5 (8.5-10.1) mg/dl Total Bilirubin 0.4 (0.2-1) mg/dl AST 18 (15-37) U/L ALT 21 (12-78) U/L Alkaline Phosphatase 77 (45-117) U/L Total Protein 6.8 (6.4-8.2) gm/dl Albumin 3.8 (3.4-5.0) gm/dl Globulin 3.0 (2.5-4.0) gm/dl Albumin/Globulin Ratio 1.3 (0.9-2) Urine Color Urine Appearance (Clear) Urine pH (4.5-7.5) Ur Specific [place] (1.000-1.030) Urine Protein (Negative) Urine Glucose (UA) (Negative) Urine Ketones (Negative) Urine Blood (Negative) Urine Nitrite (Negative) Urine Bilirubin (Negative) Urine Urobilinogen (Negative) Ur Leukocyte Esterase (Negative) Nasal Screen MRSA (PCR) Blood Type Antibody Screen
[2019-03-09 07:44] LABS: Estimated Average Glucose 111 mg/dl; Hemoglobin A1C 5.5 % (4.5-5.6)
--- NOTE | 2019-03-09 07:49 | Electrocardiogram Report ---
Test Reason : Blood Pressure : / mmHG Vent. Rate : 057 BPM Atrial Rate : 057 BPM P-R Int : 150 ms QRS Dur : 088 ms QT Int : 414 ms P-R-T Axes : 061 076 064 degrees QTc Int : 402 ms Sinus bradycardia with Premature atrial complexes Otherwise normal ECG When compared with ECG of 07-JAN-2010 05:10, Premature atrial complexes are now Present Confirmed by Feng العلي ([id number]) on 03/09/2019 7:49:46 AM Referred By: Bj Godwin Confirmed By:Artie العلي
[2019-04-04] MEDS ORDERED: CeleBREX 200 MG CAP PO SCH (06:00)
[2019-04-04] MEDS ORDERED: SCOPOLAMINE 1.5 MG TDSY TD SCH (06:00)
[2019-04-04] MEDS ORDERED: CEFAZOLIN 2000MG 2,000 MG/15 ML SYR IV SCH (06:00)
[2019-04-04] MEDS ORDERED: TRANEXAMIC ACID 1,000 MG **IV Pre-op IV SCH (06:00)
[2019-04-04] MEDS ORDERED: LR 500ML BOLUS, THEN 15ML/HR IV SCH (06:00)
[2019-04-04] MEDS ORDERED: TRANEXAMIC ACID 1,000 MG **IV Intra-op IV SCH (06:00)
[2019-04-04] MEDS ORDERED: ACETAMINOPHEN 500 MG TAB PO SCH (06:00)
[2019-04-04] MEDS ORDERED: dexAMETHasone 4 MG TAB PO SCH (06:00)
[2019-04-04] MEDS ORDERED: TRAMADOL HCL 50 MG TABLET PO SCH (06:00)
[2019-04-04] MEDS ORDERED: LR 60ML/HR IV SCH (06:00)
[2019-04-04] MEDS ORDERED: ROPIVACAINE 0.5% HCL/PF 150 MG, BUPIVACAINE 0.5% MPF 30 ML, EPINEPHrine 0.15 MG, Ketoro... INFIL SCH (06:00)
[2019-04-04] MEDS ORDERED: METOCLOPRAMIDE HCL 10 MG TABLET PO SCH (06:00)
[2019-04-04] MEDS ORDERED: FAMOTIDINE 20 MG TAB PO SCH (06:00)
[2019-04-04] MEDS ORDERED: BUPIVACAINE 0.5 % 5 MG/1 ML PF 10ML VIAL ONE (06:25)
[2019-04-04] MEDS ORDERED: MIDAZOLAM HCL 1 MG/ML 2ML VIAL ONE (06:51)
[2019-04-04] MEDS ORDERED: fentaNYL citrate 100 MCG/2 ML VIAL ONE (06:51)
[2019-04-04] MEDS ORDERED: LIDOCAINE HCL 2% 2 ML VIAL/AMP(20MG/ML) INFIL ONE (06:51)
[2019-04-04] MEDS ORDERED: ePHEDrine sulfate 50 MG/ML SYR ONE (06:51)
[2019-04-04] MEDS ORDERED: PROPOFOL IV EMULSION 10 MG/ML 20 ML VIAL IV ONE (06:51)
--- NOTE | 2019-04-04 07:03 | History & Physical Bridge Note ---
Date of Service April 04, 2019 History & Physical Bridge Note I have examined the patient, reviewed the History & Physical and in the interval since the performance of the History & Physical I have noted the following changes of clinical significance: no changes noted
[2019-04-04] MEDS ORDERED: ORTHO JOINT ANESTHETIC ONE (07:15)
[2019-04-04] MEDS ORDERED: fentaNYL citrate 100 MCG/2 ML VIAL IV PRN (07:53)
[2019-04-04] MEDS ORDERED: ONDANSETRON INJ 2 MG/ML 2 ML VIAL IV PRN ×2 (07:53→09:02)
[2019-04-04] MEDS ORDERED: HYDROmorphone INJ 1 MG/ML SYRINGE IV PRN (07:53)
[2019-04-04] MEDS ORDERED: ATROPINE SULFATE 0.1 MG/ML 10ML SYR IV PRN (07:53)
[2019-04-04] MEDS ORDERED: ePHEDrine sulfate 50 MG/ML AMP IV PRN (07:53)
--- NOTE | 2019-04-04 08:47 | Post Operative Brief Note ---
Immediate Post Op Note v1 Date of Surgery April 04, 2019 Pre & Post Diagnosis Operation Date: 04/04/19 07:15 Pre-Op Diagnosis: Left Hip Osteoarthritis Post-Op Diagnosis: Left Hip Osteoarthritis I identified the patient and participated in the time-out.: Yes Procedure Operation Date: 04/04/19 07:15 Actual Procedures p Left Total Hip Arthroplasty--Uncemented(Left) - Bj Godwin MD Surgeon Bj Godwin MD Hand Cigar Making Supervisor TELLY Long PA-C Estimated Blood Loss 100 Findings Consistent with Post-Op Diagnosis Fluids 2000 cc Specimens Femoral head Anesthesia Type Spinal MAC Complications none Disposition Accompanied Patient To Recovery: No Disposition: Recovery Room
--- NOTE | 2019-04-04 09:00 | Operative Report ---
Post Operative Report Pre & Post Diagnosis Operation Date: 04/04/19 07:15 Pre-Op Diagnosis: Left Hip Osteoarthritis Post-Op Diagnosis: Left Hip Osteoarthritis I identified the patient and participated in the time-out.: Yes Procedure Operation Date: 04/04/19 07:15 Actual Procedures p Left Total Hip Arthroplasty--Uncemented(Left) - Bj Godwin MD Surgeon Bj Godwin MD Car Rental Sales Assistant TELLY Long PA-C Estimated Blood Loss 100 Findings Consistent with Post-Op Diagnosis Specimens left femoral head Complications none Disposition Accompanied Patient To Recovery: Yes Disposition: Recovery Room Description of Procedure I was present during the entire procedure assisting with retraction, wound closure and dressing application. Please see Dr. Godwin procedure note for specifics of the case. I attest to the content of the Intraoperative Record and any orders documented therein. Any exceptions are noted below.
[2019-04-04] MEDS ORDERED: NALOXONE HCL 0.4 MG/1 ML VIAL/CARP IV PRN (09:02)
[2019-04-04] MEDS ORDERED: OXYCODONE HCL IR 5 MG TAB (IMMEDIATE RELEASE) PO PRN (09:02)
[2019-04-04] MEDS ORDERED: METOCLOPRAMIDE HCL INJ 5 MG/ML 2 ML VIAL IV PRN (09:02)
[2019-04-04] MEDS ORDERED: HYDROmorphone INJ 0.5 MG/0.5 ML SYR IV PRN (09:02)
[2019-04-04] MEDS ORDERED: bisacodyL 10 MG SUPP PR PRN (09:02)
[2019-04-04] MEDS ORDERED: ALUMINUM/MAGNESIUM SUSP 30 ML UDC PO PRN (09:02)
[2019-04-04] MEDS ORDERED: MAGNESIUM HYDROXIDE SUSP 30 ML UDC PO PRN (09:02)
[2019-04-04] MEDS ORDERED: DiphenhydrAMINE HCL 50 MG/ML VIAL IV PRN (09:02)
[2019-04-04] MEDS ORDERED: ERGOCALCIFEROL 50,000 UNITS CAP PO SCH (09:15)
--- NOTE | 2019-04-04 09:42 | XRay Report ---
XR hip 1V LT w pelvis CLINICAL HISTORY: IN PACU - A/P PELVIS and LATERAL HIP DEGENERATIVE ARTHRITIS. HIP PAIN COMPARISON: 03/08/2019 DISCUSSION: There are postsurgical changes of a total left hip arthroplasty. The acetabular and femor al components appear well seated. There is no dislocation. There is gas present within the soft tissu es consistent with recent surgery. IMPRESSION: Postsurgical changes of a total left hip arthroplasty. No complicating features identifie d. ACT 112: Negative or not required by law. Electronically signed by: Juan Desouza M.D. 04/04/2019 9:40 AM
--- NOTE | 2019-04-04 10:31 | Anesthesiology Progress Note ---
Date of Service April 04, 2019 Anesthesia Post Procedure Vital Signs Vital Signs: Temp Pulse Pulse Resp BP Pulse Ox 04/04/19 10:05 36.8 C 64 16 105/45 L 95 04/04/19 09:55 66 16 98/47 L 94 04/04/19 09:45 66 17 101/49 L 94 04/04/19 09:35 64 13 95/50 L 96 04/04/19 09:25 90 17 100/55 L 99 04/04/19 09:15 64 16 95/40 L 100 04/04/19 09:05 70 22 98/42 L 100 04/04/19 08:59 36.3 C L 69 16 101/46 L 100 04/04/19 05:52 36.9 C 59 L 20 126/72 95 Pain Intensity Left Hip: Pain Intensity: 0 Transfer of Care Handoff Completed per policy Notes Mental Status: alert / awake / arousable and participated in evaluation Patient Amnestic to Procedure: Yes Nausea / Vomiting: adequately controlled Pain: adequately controlled Airway Patency, RR, SpO2: stable & adequate BP & HR: stable & adequate Hydration State: stable & adequate Neuraxial Anesthesia: was administered and sensory block is resolving Anesthetic Complications: no major complications apparent and Pt Satisfied with anesthetic care
[2019-04-04] MEDS: SODIUM CHLORIDE 0.9% 1000ML 1,000 ML IV SCH ×2 (10:59→21:01)
[2019-04-04] MEDS: KETOROLAC TROMETHAMINE 15 MG/ML VIAL IV SCH ×3 (10:59→22:18)
--- NOTE | 2019-04-04 11:40 | Operative Report ---
DATE OF OPERATION: 04/04/2019 PREOPERATIVE DIAGNOSIS: Left hip osteoarthritis. POSTOPERATIVE DIAGNOSIS: Left hip osteoarthritis. OPERATIONS PERFORMED: Left total hip arthroplasty. SURGEON: Bj Godwin MD CORPORATE SALES MANAGER SURGEON: Christopher Long. ESTIMATED BLOOD LOSS: 100 mL. INTRAVENOUS FLUIDS: 2000 mL crystalloid. SPECIMENS: Femoral head. COMPLICATIONS: None. IMPLANTS: 1. DePuy Azalea Gription, 52 mm outer diameter acetabular sector cup. 2. Azalea cancellous bone screw 30 mm x 6.5 mm. 3. DePuy Azalea Ultrex polyethylene liner for 32 mm femoral head. 4. DePuy Noxon size 5 high offset Noxon femoral stem. 5. DePuy Articul/Kristian metal head 32 mm diameter with +1 offset. INDICATIONS: Ms. Tavera is a very pleasant 68-year-old female who has had pain in her left hip for 3 years. This is affecting her activities of daily living. She has failed conservative management. X-rays demonstrate end-stage osteoarthritis of the left hip. I had a long discussion with her about the risks and benefits of surgery, alternatives to surgery and expected outcomes. After reviewing all these, she elected to proceed with surgery. All questions were answered. Informed consent was signed. OPERATIVE FINDINGS: Degenerative osteoarthritis of the left hip. A metal on polyethylene bearing total hip arthroplasty was performed through posterior approach. DESCRIPTION OF THE OPERATION: The patient was identified in the preoperative holding area where her surgical site was marked. She was given a spinal anesthetic and brought back to main operating room. She was placed on the operating room table and moved in the lateral decubitus position. Axillary roll was placed. All bony prominences were padded. Perioperative antibiotics were administered. She was prepped and draped in normal sterile fashion. Prior to incision, a multidisciplinary timeout was called. All in the room were in agreement. We began by making a posterior approach to the hip for a length of approximately 14 cm long incision. We dissected down through subcutaneous tissue to the level of fascia. Fascia was incised in line with the incision. Charnley bow was placed. Trochanteric bursa was excised. Piriformis and short external rotators were dissected off the posterior aspect of the hip. Box cut was made in the capsule. The femoral head was dislocated. Femoral neck cut was made at 10 mm, which was our preoperative template. The acetabulum was then exposed. The labrum was sharply excised and the contents of cotyloid fossa were removed with electrocautery. We then began reaming with a size 46 mm reamer. We reamed up to a size 52 mm cup. This gave us excellent peripheral bleeding bone. We then opened up the real size 52 mm Azalea cup and impacted into position with 45 degrees of lateral opening and 20 degrees of anteversion. A single cancellous bone screw was placed up into the ilium. Excellent fixation was obtained. The polyethylene liner was then impacted into position and the locking mechanism was checked to ensure it had engaged, which it had. Next, the femur was exposed. The lateral neck was excised with a box osteotome. The intramedullary guide was used followed by the lateralizing reamer. We then reamed up to a size 5 Noxon. She was then broached up to a size 5 Noxon. We had measured the center of the femoral head to the lesser trochanter distance at 55 mm prior to making our femoral neck osteotomy. With a size 5 trial and 1.5 head offset with a high offset neck, she reproduced the offset we had previously measured. The hip was then reduced. Her shuck test was appropriate. Her leg lengths were symmetric. She had no impingement with extension and external rotation. She was stable in the sleeper position. At 90 degrees of hip flexion, she could be internally rotated 55 degrees before leaving out of the cup. I was very happy with the stability exam. Therefore, the femoral trial was removed. The femoral canal was irrigated and dried. The real size 5 high offset femoral stem was then impacted down into position. It sat at the same level as the broach. We therefore opened up the +1 offset, 32 mm metal femoral head and gently impacted this onto the trunnion, which was previously cleaned and dried. The hip was then atraumatically reduced. The wound was irrigated with copious amounts of sterile Betadine solution which was allowed to sit for 3 minutes. Next, the periarticular injection was placed and the Betadine was irrigated out of the wound. The short external rotators and posterior capsular flap were repaired through bone tunnels in the posterior aspect of the greater trochanter with #2 Vicryl. The fascia was run with a looped #1 PDS. A #1 PDS was used for the subcutaneous layer. A 2-0 Vicryl was used for the dermal layer. Zipline was used for the skin. Mickyn dressing was placed followed by compressive dressing. The patient was rolled supine. She was placed into an abduction pillow. She was transferred to recovery room in stable condition. POSTOPERATIVE COURSE: The patient will be admitted to the hospital overnight for pain control and monitoring. She will be discharged home tomorrow. She will be on aspirin for DVT prophylaxis. I attest to the content of the Intraoperative Record and any orders documented therein. Any exception s are noted below.
[2019-04-04] MEDS: ACETAMINOPHEN 500 MG TAB PO SCH ×2 (13:14→22:18)
[2019-04-04] MEDS ORDERED: TRANEXAMIC ACID / 0.7% NACL 1,000 MG/100 ML BAG IV SCH (15:04)
[2019-04-04] MEDS: CEFAZOLIN 2000MG 2,000 MG/15 ML SYR IV SCH ×2 (15:57→22:17)
[2019-04-04] MEDS: CHECK SCOPOLAMINE PATCH PLACEMENT SCH ×2 (16:18→23:40)
[2019-04-04] MEDS: VERAPAMIL HCL 120 MG TABCR PO SCH (20:28)
[2019-04-04] MEDS: SENNA 8.6 MG TAB PO SCH (20:29)
[2019-04-04] MEDS: ASPIRIN 81 MG ECTAB PO SCH (20:29)
[2019-04-04] MEDS: DOCUSATE SODIUM 100 MG CAP PO SCH (20:29)
[2019-04-04] MEDS: METFORMIN HCL 500 MG TAB PO SCH (20:30)
[2019-04-04] MEDS ORDERED: ASPIRIN 81 MG ECTAB PO SCH (21:00)
[2019-04-04] MEDS ORDERED: NON-FORMULARY MEDICATION (Flaxseed Oil 1,000 MG) PO SCH (21:00)
[2019-04-05] MEDS: SODIUM CHLORIDE 0.9% 1000ML 1,000 ML IV SCH (04:01)
[2019-04-05] MEDS: KETOROLAC TROMETHAMINE 15 MG/ML VIAL IV SCH (04:49)
[2019-04-05] MEDS: LEVOTHYROXINE SODIUM 50 MCG TABLET PO SCH (05:12)
[2019-04-05] MEDS: ACETAMINOPHEN 500 MG TAB PO SCH ×3 (05:12→21:01)
[2019-04-05 05:18] LABS: Basophils # (auto) 0.01 K/uL (0-0.2); Basophils % (auto) 0.1 %; Hematocrit (blood only) 33.8 % (37-47); Hemoglobin 11.1 g/dL (12.0-16.0); Immature Granulocytes # (auto) 0.05 K/uL (0.00-0.02); Immature Granulocytes % (auto) 0.3 %; Lymphocytes # (auto) 1.59 K/uL (1.2-3.4); Mean Corpuscular Hemoglobin 29.7 pg (25-34); Mean Corpuscular Hgb Conc 32.8 g/dL (32-36); Mean Corpuscular Volume 90.4 fL (80-100); Mean Platelet Volume 11.6 fL (7.4-10.4); Monocytes # (auto) 1.03 K/uL (0.11-0.59); Monocytes % (auto) 6.5 %; Neutrophils # (auto) 13.27 K/uL (1.4-6.5); Neutrophils % (auto) 83.1 %; Platelet Count 162 K/uL (130-400); RDW Coefficient of Variation 14.1 % (11.5-14.5); RDW Standard Deviation 46.6 fL (36.4-46.3); Red Blood Count 3.74 M/uL (4.2-5.4); White Blood Count 15.95 K/uL (4.8-10.8)
[2019-04-05 05:49] LABS: BUN Creatinine Ratio 10.9 (10-20); Calcium 8.7 mg/dl (8.5-10.1); Creatinine Clr Calc Pharmacy 46.6 ml/min; Est GFR (African American) 72.2; Est GFR (Non-African American) 62.3; Potassium 4.2 mmol/L (3.5-5.1)
--- NOTE | 2019-04-05 07:24 | Anesthesiology Progress Note ---
Date of Service April 05, 2019 Anesthesia Post Procedure Vital Signs Vital Signs: Temp Pulse Pulse Pulse Resp BP Pulse Ox 04/05/19 02:40 37.1 C 68 18 152/68 H 97 04/04/19 23:04 36.6 C 47 L 18 95/50 L 96 04/04/19 20:43 36.5 C 52 L 16 102/57 L 95 04/04/19 17:44 51 L 107/61 98 04/04/19 15:08 36.4 C L 60 16 94/52 L 98 04/04/19 14:09 36.4 C L 72 18 95/54 L 98 04/04/19 13:24 36.8 C 98 H 18 92/47 L 99 04/04/19 12:06 36.4 C L 54 L 18 101/54 L 98 04/04/19 10:53 36.6 C 59 L 18 93/47 L 97 04/04/19 10:32 36.4 C L 64 18 99/54 L 97 04/04/19 10:05 36.8 C 64 16 105/45 L 95 04/04/19 09:55 66 16 98/47 L 94 04/04/19 09:45 66 17 101/49 L 94 04/04/19 09:35 64 13 95/50 L 96 04/04/19 09:25 90 17 100/55 L 99 04/04/19 09:15 64 16 95/40 L 100 04/04/19 09:05 70 22 98/42 L 100 04/04/19 08:59 36.3 C L 69 16 101/46 L 100 Pain Intensity Left Hip: Pain Intensity: 0 Notes Mental Status: alert / awake / arousable and participated in evaluation Patient Amnestic to Procedure: Yes Nausea / Vomiting: adequately controlled Pain: adequately controlled Airway Patency, RR, SpO2: stable & adequate BP & HR: stable & adequate Hydration State: stable & adequate Neuraxial Anesthesia: sensory block resolved Anesthetic Complications: Pt Satisfied with anesthetic care
[2019-04-05] MEDS: VERAPAMIL HCL 120 MG TABCR PO SCH ×2 (07:28→20:54)
[2019-04-05] MEDS: DOCUSATE SODIUM 100 MG CAP PO SCH ×2 (07:29→20:53)
[2019-04-05] MEDS: MULTIVITAMIN TAB PO SCH ×2 (07:29)
[2019-04-05] MEDS: LIOTHYRONINE SODIUM 5 MCG TAB PO SCH (07:29)
[2019-04-05] MEDS: FERROUS SULFATE 325 MG TAB PO SCH (07:30)
[2019-04-05] MEDS: METFORMIN HCL 500 MG TAB PO SCH ×2 (07:30→20:53)
[2019-04-05] MEDS: ASPIRIN 81 MG ECTAB PO SCH ×2 (07:30→20:53)
[2019-04-05] MEDS: CHOLESTYRAMINE LIGHT 4 GM PKT PO SCH (07:38)
[2019-04-05] MEDS: TRAMADOL HCL 50 MG TABLET PO PRN ×2 (07:41→21:00)
[2019-04-05] MEDS ORDERED: dexAMETHasone 4 MG TAB PO SCH (08:00)
[2019-04-05] MEDS: CeleBREX 200 MG CAP PO SCH ×2 (10:54→20:54)
--- NOTE | 2019-04-05 12:04 | Orthopedic Progress Note ---
Date of Service April 05, 2019 Assessment & Plan (1) S/P total hip arthroplasty: WBAT with walker assitance Keep dressing in place Abduction pillow use x 6 wks post op PT/OT Plan on discharge home with health services tomorrow AM Ice with EZ wrap DVT prophy with TEDs and Aspirin Pain control with PO meds F/u at [facility] as scheduled With questions call Subjective This 68 yo F is day 1 s/p left total hip arthroplasty. Patient is doing very well except for some confusion due to the oxycodone that she was given for pain control. She did very well with PT/OT this AM and was scheduled to be discharge home with health services today, but her daughter is very apprehensive and would like her mother to stay inpatient until the narcotic is "out of her system," before taking her home. Otherwise patient denies pain, fever, chills, sweats, nausea, vomiting, CP or SOB. Review of Systems Review of Systems: All systems reviewed & are unremarkable except as noted in HPI & below Physical Exam Physical Exam: Left Hip: Dressing clean, dry and intact. Patient is easily able to stand and ambulate with walker assistance. Knee ROM 0-90. No pain with very light passive internal / external hip rotation. Neg SLRT. Neg log roll. Neg Stinchfield. Quad strength 4-5. Calf soft and supple. Able to actively dorsi/plantar flex foot. NV intact. Results & Data ([facility]) Vital Signs (Past 12 Hours) Vital Signs Temp Pulse Resp BP Pulse Ox 04/05/19 07:28 36.9 C 65 18 159/76 H 97 04/05/19 02:40 37.1 C 68 18 152/68 H 97 Laboratory Results 04/05/19 04/05/19 Range/Units 05:04 05:04 WBC 15.95 H (4.8-10.8) K/uL RBC 3.74 L (4.2-5.4) M/uL Hgb 11.1 L (12.0-16.0) g/dL Hct 33.8 L (37-47) % MCV 90.4 (80-100) fL MCH 29.7 (25-34) pg MCHC 32.8 (32-36) g/dL RDW Std Deviation 46.6 H (36.4-46.3) fL RDW Coeff of Bailey 14.1 (11.5-14.5) % Plt Count 162 (130-400) K/uL MPV 11.6 H (7.4-10.4) fL Immature Gran % (Auto) 0.3 % Neut % (Auto) 83.1 % Lymph % (Auto) 10.0 % [place] % (Auto) 6.5 % Eos % (Auto) 0.0 % Baso % (Auto) 0.1 % Immature Gran # (Auto) 0.05 H (0.00-0.02) K/uL Neut # (Auto) 13.27 H (1.4-6.5) K/uL Lymph # (Auto) 1.59 (1.2-3.4) K/uL [place] # (Auto) 1.03 H (0.11-0.59) K/uL Eos # (Auto) 0.00 (0-0.5) K/uL Baso # (Auto) 0.01 (0-0.2) K/uL Sodium 141 (136-145) mmol/L Potassium 4.2 (3.5-5.1) mmol/L Chloride 112 H (98-107) mmol/L Carbon Dioxide 26 (21-32) mmol/L Anion Gap 3.0 (3-11) BUN 10 (7-18) mg/dl Creatinine 0.93 (0.6-1.2) mg/dl Est Cr Clr Drug Dosing 46.6 ml/min Est GFR ( Amer) 72.2 Est GFR (Non-Af Amer) 62.3 BUN/Creatinine Ratio 10.9 (10-20) Glucose 134 H (70-99) mg/dl Calcium 8.7 (8.5-10.1) mg/dl
--- NOTE | 2019-04-05 12:05 | Discharge Summary ---
Date of Service April 05, 2019 Admission HPI Per Admitting Provider HISTORY OF PRESENT ILLNESS: This 68-year-old female presents to the clinic today for her preoperative history and physical. The patient complains of a 3- year history of left hip pain with an insidious onset that has become progressively worse over the past 6 months and is affecting the way that she ambulates. She has a severely antalgic gait. She states that it prevents her from walking long distances, doing yard work and she states that before the pain became persistent, she was able to walk 4-5 miles per day. The patient has seen Dr. Adams in our clinic and received ultrasound-guided hip injections in the past. She states that her most recent injection and the use of Medrol Dosepak did not alleviate her pain whatsoever. The patient has tried physical therapy in the past, which did not help and exacerbated her pain. She states that the pain has been so debilitating that she has great difficulty transitioning from a seated to a standing position and then walking. She refers most of the pain to her groin area. The patient states that she is ready to undergo a total hip arthroplasty. 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 PAST SURGICAL HISTORY: section x2, ovarian excision, hysterectomy, appendectomy, lumbar fusion, ganglion cyst excision and cholecystectomy. FAMILY HISTORY: Positive for melanoma. ALLERGIES: The patient has no known drug allergies; however, she does have AN ALLERGY TO INDIGO DYE, WHICH CAUSES A RASH. CURRENT MEDICATIONS USED: Aspirin 81 mg oral delayed release tablet daily, flaxseed oil oral capsule 2 caps daily, hydroquinone 4% topical cream 1 application twice daily for 2 months, levothyroxine 50 mcg oral tablet daily, liothyronine 5 mcg oral tablet daily, metformin 500 mg tablet twice daily, multivitamin 1 tablet daily, Slow Fe 45 mg oral tablet extended release 1 tab daily, verapamil 120 mg/12 hour oral tablet extended release 2 tabs daily, vitamin B12 1000 mcg/mL injectable solution 1000 mcg intramuscularly each month, vitamin D2 50,000 international unit oral capsule 1 cap every 7 days. SOCIAL HISTORY: The patient denies a history of alcohol, illicit drug or tobacco use. Admission Exam Per Admitting Provider PHYSICAL EXAMINATION: Skin: The patient's skin is normal in appearance. No open skin lesions or discharge. Eyes: Pupils are equal and reactive to light and accommodating. Extraocular movements are intact. Throat: Posterior oropharynx is clear with absence of edema, erythema or exudate. Cardiovascular exam: The patient has a regular rate and rhythm with an occasional S3 gallop noted during auscultation. There were murmurs appreciated. Lungs: Auscultation of lung lang reveals clear breath sounds throughout, no wheezing, rales or rhonchi. Abdomen is nonobese, nondistended, nontender with normoactive bowel sounds. Extremities: Left hip, the patient has a positive log roll test, positive Stinchfield test. She has referred pain to the groin with flexion to 85 degrees, external rotation to 25 degrees and internal rotation to 10 degrees. EDER test causes referred groin pain and is 3-1/2 fists. The patient has tenderness to palpation over the anterior groin, palpable crepitation with passive range of motion. Her calf is soft and supple, nontender to palpation. She is neurovascularly intact in left lower extremity. Neurological exam: Cranial nerves 2-12 are intact with no motor or sensory deficit. Psychological/general exam: The patient is alert and oriented x3 with proper grooming and hygiene. Principal Diagnosis Left Hip Osteoarthritis Discharge Exam Left Hip: Dressing clean, dry and intact. Patient is easily able to stand and ambulate with walker assistance. Knee ROM 0-90. No pain with very light passive internal / external hip rotation. Neg SLRT. Neg log roll. Neg Stinchfield. Quad strength 4-5. Calf soft and supple. Able to actively dorsi/plantar flex foot. NV intact. Discharge Data Allergies Allergy/AdvReac Type Severity Reaction Status Date / Time indigotindisulfonic acid Allergy Intermediate RASH,ITCHIN Verified 04/04/19 05:47 G Consultations 04/05/19 08:00 Consult Case Management - Discharge Planning Routine Procedures Performed Operation Date: 04/04/19 07:15 Actual Procedures p Left Total Hip Arthroplasty--Uncemented(Left) - Bj Godwin MD Hospital Course (1) S/P total hip arthroplasty: Patient did very well overnight except for some persistent confusion after given a does of Oxycodone for pain control. Patient was very pleasant during exam this AM but was speaking slightly inappropriately. Her daughter would like her to stay another night to be sure that the narcotic clears her system before taking her home. We will plan on discharge home tomorrow AM with home health [place]. WBAT with walker assitance Keep dressing in place Abduction pillow use x 6 wks post op PT/OT Plan on discharge home with health services tomorrow AM Ice with EZ wrap DVT prophy with TEDs and Aspirin Pain control with PO meds F/u at [facility] as scheduled With questions call Total Time Total Time Spent Total Time Spent (In Minutes): 20 mins Total Time Includes: Examination of the Patient, Discharge Planning, Medication Reconciliation and Communication With Other Providers Discharge Plan Discharge Items Patient Disposition: Home - Home Health Services Reason For Visit: Left Hip Osteoarthritis Discharge Diagnosis: Left Hip Osteoarthritis Activity: As commented below Lifting: None Bathing: Keep incision dry Bathing Comment: May shower tomorrow Sexual Activity: Wait until after follow-up appointment Exercise/Sports: Wait until after follow-up appointment Driving/Machine Use: No driving until cleared by student development specialist Weightbearing: Left weightbearing Weightbearing Comment: as tolerated with walker assistance Non-emergency contact: Primary Care Provider Call non-emergency contact if: you have any medication questions, your pain is not controlled, your temperature is above 101.5, your wound has increased drainage and your wound pain has increased Follow-up/Referrals: Carlos Crawford III, CRNP [Primary Care Provider] - Diet: Regular Addtl Attending Provider Instructions: Post-operative Instructions Dear Patient and Family/Friends, Before you are discharged from the hospital, it is important to know what to expect when you get home after surgery. To that end, we have created this sheet of discharge instructions which covers many commonly asked questions. Make sure you go through this sheet in its entirety with your nurse before you are discharged. Please note that we will go over the specifics of your surgery and recovery when you return for your first post-operative visit. Sincerely, Dr. Godwin Medications 1. Tramadol 25 mg: take 1-2 tabs by mouth every 4-6 hrs for pain control. 30 Tablets have been sent to your pharmacy. 2. Naproxen 500 mg: Resume your previous regimen of naproxen for relief of pain and inflammation. 3. Extra Strength Tylenol 500mg: Take 2 tabs by mouth every 6-8 hours for 30 days post operatively for pain relief. Please purchase. 4. Aspirin 81 mg: increase your aspirin to one tablet twice daily for 30 days post operatively for prevention of blood clots. Pain Expect to be in a fair amount of pain after surgery. Remember, our goal is not to eliminate your pain, but to make it tolerable. It is a good idea to stay ahead of your pain by taking the medications you were prescribed once you get home. Typically, the pain starts improving 3-7 days after surgery. You should start weaning off the narcotic pain medication (oxycodone, hydrocodone, hydromorphone, morphine) as soon as your pain improves. Please call our office if your pain is not adequately controlled. Ice Ice your operative site at least 5 times a day for 15-30 minutes at a time. Make sure you have a thin cloth between the ice or cooling unit and your skin to prevent ross bite. This is especially important if you received a nerve block. Continue icing your operative site for the first 5-7 days after surgery, then as needed. Diet/Nausea/Vomiting Start by drinking clear liquids and eating crackers. If you can tolerate this, then you may resume your normal diet. If you feel nauseated or vomit, take Zofran/ondansetron (if prescribed). Please call our office if you have intractable nausea or vomiting, or, if after hours, you may go to the Emergency Room for help. Constipation Constipation is a common side effect of narcotic pain medication. If you have not had a bowel movement within 2 days after surgery, we recommend purchasing an over the counter laxative such as Milk of Magnesia, Dulcolax, or Miralax from a local pharmacy, and taking it as instructed. Call our clinic if any questions. Nerve block The anesthesia team sometimes places a nerve block to help with post-operative pain control. This results in significant numbness and inability to move the extremity. The nerve block usually wears off in 8-12 hours, but sometimes can last up to 24 hours. Please call our office if you are still unable to move your extremity after 24 hours, unless you received a pain pump to take home. Nerve blocks typically wear off quickly, so start taking pain medication as soon as you start feeling soreness near your surgical site. Weight bearing and Range of Motion. Do not bear any weight through your operative extremity immediately after surgery. If you had upper extremity surgery, do not lift anything with that arm. If you are in a knee brace, keep it locked in place until your follow-up. We will discuss your weight bearing, range of motion, and lifting restrictions in detail at your first post-operative appointment. Continuous Passive Motion (CPM) Machine If you were prescribed a CPM machine, it will start after your first post- operative appointment, at which time we will give you instructions on the range of motion settings and duration of treatment Physical therapy You will be given a prescription for physical therapy or occupational therapy at your first post-operative appointment. Typically, patients start therapy within 1 week of surgery Wound care and showering We will inspect your wound at your first post-operative visit, and may do a dressing change at that time. Most patients will be in a water-proof dressing that is removed 14 days after surgery. It is normal to see some dried blood on the dressing. Do not remove your dressing, paper strips or sutures yourself unless you are given permission. Showering is allowed the day after surgery. Do not scrub or remove any dressing s. The wound should not be submerged underwater (i.e. in a bathtub or pool) until 4 weeks after surgery RONNY stockings If you were given white stockings, these are to be worn at all times except to shower (on both legs) for the first 2 weeks after surgery. Driving You may not drive while taking narcotic pain medication or while in a cast, splint, sling or brace. You, the patient, need to make the final determination about when you are safe to drive, however, the earliest you may consider driving after surgery is below: Hand/Wrist/Elbow Surgery: 3 days Shoulder Surgery: 2 weeks Hip,/Knee/Ankle Surgery: 4 weeks Fracture repair: 6 weeks Return to Work Your return to work depends on what surgery was done and what type of work you do. Please bring any paperwork your employer needs completed to your first post-operative visit. Also, bring a description of your job duties, as this helps us to understand what risks you may face at work. Travel Avoid long distance travel (greater than 1 hour) in airplanes and cars for the first 6 weeks after surgery. If you must travel, you need to have a Doppler ultrasound done before you travel to rule out a blood clot in your legs. Follow-up You should have a follow-up appointment already scheduled 1-2 days after surgery. If not, please contact our office to make this appointment before you leave the hospital. When to call the office It is normal to have swelling and bruising in the limb that was operated on. This will improve with time. It is also normal to have fevers for the first 2 days after surgery. Reasons you should call your doctor include: Uncontrolled pain; Nausea, vomiting, or constipation that does not improve with medication; Fevers over 101.5, chills, sweats; Drainage or bleeding from the wound; Foul odor; Spreading areas of redness; Any other concerns Pending Studies at Discharge: No Stand-Alone Forms: [facility] Medications and DC Order Prescriptions: New oxycodone 5 mg tablet See Rx Instructions .ROUTE .COMPLEX Qty: 30 RF: 0 Continued ergocalciferol (vitamin D2) 50,000 unit capsule 50,000 units PO WEEKLY Qty: 5 RF: 5 metformin 500 mg tablet 500 mg PO BID Qty: 180 RF: 1 verapamil 120 mg tablet extended release 120 mg PO BID Qty: 180 RF: 1 naproxen 500 mg tablet 500 mg PO BID PRN (Reason: pain) RF: 0 flaxseed oil 1,000 mg capsule 1,000 mg PO BID RF: 0 cholestyramine (with sugar) [Questran] 4 gram powder in packet 4 gm PO QAM Qty: 1 RF: 0 liothyronine 5 mcg tablet 5 mcg PO QAM RF: 0 levothyroxine 50 mcg tablet 50 mcg PO QAM RF: 0 ferrous sulfate [Slow Release Iron] 140 mg (45 mg iron) Tablet Extended Release 140 mg PO DAILY RF: 0 multivitamin Capsule 1 cap PO DAILY RF: 0 Changed aspirin [Adult Aspirin Regimen] 81 mg tablet,delayed release (DR/EC) 81 mg PO BID Qty: 0 RF: 0 Discharge Orders: Discharge Order (Routine); Ordered 04/05/19 Ordered By: Garry Long Admission Data Admit Date/Time: 04/04/19 09:02 Attending Provider: Bj Godwin Admit Provider: Bj Godwin Primary Care Provider: Carlos Crawford III Other Providers: [facility]
[2019-04-05] MEDS: SENNA 8.6 MG TAB PO SCH ×2 (20:53→20:58)
[2019-04-06] MEDS: TRAMADOL HCL 50 MG TABLET PO PRN (01:19)
[2019-04-06] MEDS: LEVOTHYROXINE SODIUM 50 MCG TABLET PO SCH (05:34)
[2019-04-06] MEDS: ACETAMINOPHEN 500 MG TAB PO SCH (05:34)
[2019-04-06] MEDS: VERAPAMIL HCL 120 MG TABCR PO SCH (09:02)
[2019-04-06] MEDS: FERROUS SULFATE 325 MG TAB PO SCH (09:02)
[2019-04-06] MEDS: CeleBREX 200 MG CAP PO SCH (09:02)
[2019-04-06] MEDS: ASPIRIN 81 MG ECTAB PO SCH (09:02)
[2019-04-06] MEDS: METFORMIN HCL 500 MG TAB PO SCH (09:03)
[2019-04-06] MEDS: MULTIVITAMIN TAB PO SCH ×2 (09:03)
[2019-04-06] MEDS: CHOLESTYRAMINE LIGHT 4 GM PKT PO SCH (09:03)
[2019-04-06] MEDS: LIOTHYRONINE SODIUM 5 MCG TAB PO SCH (09:03)
[2019-04-06] MEDS: DOCUSATE SODIUM 100 MG CAP PO SCH (09:03)
== END 2019-04-06 09:37 | disposition home health service (06) | DRG 470 ==
LOC: ASU 05:05 → 3E 09:02

== ENCOUNTER 2023-08-28 09:38 | Observation (INO) ==
--- NOTE | 2023-07-20 12:41 | PAT Medication Instructions ---
Medication Instructions Date of Service July 20, 2023 Home Medications Medication Instructions Recorded amoxicillin 500 mg capsule 2,000 mg (4 x 500 mg) PO ONCE #4 06/06/22 caps liothyronine 5 mcg tablet 5 mcg PO QAM #90 tabs 10/17/22 ergocalciferol (vitamin D2) 1,250 50,000 unit PO WEEKLY #13 caps 11/23/22 mcg (50,000 unit) capsule celecoxib 200 mg capsule (Celebrex) 200 mg PO BID PRN pain #60 caps 06/01/23 tramadol 50 mg tablet 50 mg PO Q8H PRN pain #30 tabs 06/05/23 flaxseed oil 1,000 mg capsule 1,000 mg PO QAM ferrous sulfate 140 mg (45 mg iron) tablet,extended release (Slow Release Iron) 140 mg PO QPM multivitamin 1 cap PO QAM aspirin 81 mg tablet,delayed release (Adult Aspirin Regimen) 81 mg PO HS cyanocobalamin (vitamin B-12) 1,000 mcg/mL injection solution 1,000 mcg subcut MONTHLY amoxicillin 500 mg capsule 2,000 mg (4 x 500 mg) PO ONCE acetaminophen 500 mg tablet (Tylenol Extra Strength) 1,000 mg PO Q8H PRN prn liothyronine 5 mcg tablet 5 mcg PO QAM ergocalciferol (vitamin D2) 1,250 mcg (50,000 unit) capsule 50,000 unit PO WEEKLY folic acid 1 mg tablet 1 mg PO QAM celecoxib 200 mg capsule (Celebrex) 200 mg PO BID PRN pain tramadol 50 mg tablet 50 mg PO Q8H PRN pain levothyroxine 50 mcg tablet 50 mcg PO QAM metformin 750 mg tablet,extended release 24 hr 750 mg PO QAM verapamil 80 mg tablet 80 mg PO UD Continue as directed amoxicillin 500 mg capsule 2,000 mg (4 x 500 mg) PO ONCE ASK your surgeon for instructions celecoxib 200 mg capsule (Celebrex) 200 mg PO BID PRN pain ASK your prescriber and surgeon aspirin 81 mg tablet,delayed release (Adult Aspirin Regimen) 81 mg PO HS STOP taking 2 weeks before surgery (or as soon as possible if surgery is within 2 weeks) flaxseed oil 1,000 mg capsule 1,000 mg PO QAM DO NOT take the morning of surgery multivitamin 1 cap PO QAM cyanocobalamin (vitamin B-12) 1,000 mcg/mL injection solution 1,000 mcg subcut MONTHLY ergocalciferol (vitamin D2) 1,250 mcg (50,000 unit) capsule 50,000 unit PO WEEKLY folic acid 1 mg tablet 1 mg PO QAM metformin 750 mg tablet,extended release 24 hr 750 mg PO QAM Take morning of surgery With a small sip of water, OTHERWISE NOTHING TO EAT OR DRINK AFTER MIDNIGHT: acetaminophen 500 mg tablet (Tylenol Extra Strength) 1,000 mg PO Q8H PRN prn (if needed) liothyronine 5 mcg tablet 5 mcg PO QAM tramadol 50 mg tablet 50 mg PO Q8H PRN pain (if needed) levothyroxine 50 mcg tablet 50 mcg PO QAM verapamil 80 mg tablet 80 mg PO UD Take evening before surgery ferrous sulfate 140 mg (45 mg iron) tablet,extended release (Slow Release Iron) 140 mg PO QPM acetaminophen 500 mg tablet (Tylenol Extra Strength) 1,000 mg PO Q8H PRN prn (if needed) tramadol 50 mg tablet 50 mg PO Q8H PRN pain (if needed) verapamil 80 mg tablet 80 mg PO UD Other Notes If you have any questions please call us at [phone] or [phone] or [phone] or [phone]
--- NOTE | 2023-08-03 09:39 | Anesthesiology Consultation ---
Date of Service August 03, 2023 Assessment & Plan (1) Encounter for pre-operative examination: - Check BSG AM DOS - Infectious disease screening: Per assessment on 08/03/23: No known infectious disease contacts or current infectious disease symptoms. No noted recent Covid positive test result. - Outpatient joint assessment: Pt currently scheduled for inpatient pathway. If surgeon requests review for outpatient joint pathway, patient is not recommended candidate for outpatient joint program from anesthesia standpoint based on available information. - Hemidiaphragm elevation: Patient scheduled for Left reverse TSA. Preop CXR done 08/03/23 notes Elevation of the right hemidiaphragm. - Patient has upcoming visit with PCP scheduled- Awaiting PCP office visit note (MONAEG, appt 08/21). Patient otherwise acceptable risk for surgery. Chart Review Chart Review: Patient seen in Pre Admission Testing Teaching & Discussion Pre-Anesthesia Teaching/Discussion Notes: Instructed NPO after midnight before surgery,except medications with 15 cc of water. Medication instructions provided according to the PAT guidelines. History Surgery Operation Date: 08/28/23 09:15 Proposed Procedures p Left Reverse Total Shoulder Arthroplasty - Arian Madrigal, Height/Weight Height: 5 ft Weight: 61.3 kg Allergies Allergy/AdvReac Type Severity Reaction Status Date / Time indigotindisulfonic acid Allergy Intermediate Rash, Verified 07/26/23 14:11 itching oxycodone AdvReac Severe Severe Verified 07/26/23 14:11 confusion alendronate sodium AdvReac Intermediate Edema Verified 07/26/23 14:11 [From Fosamax] Medications Home Medications Medication Instructions Recorded Confirmed Last Taken flaxseed oil 1,000 mg capsule 1,000 mg PO QAM 08/10/18 07/14/23 01/04/22 ferrous sulfate 140 mg (45 mg 140 mg PO QPM 03/01/19 07/14/23 01/05/22 iron) tablet,extended release (Slow Release Iron) multivitamin 1 cap PO QAM 03/01/19 07/14/23 01/05/22 aspirin 81 mg tablet,delayed 81 mg PO HS 08/04/20 07/14/23 01/04/22 release (Adult Aspirin Regimen) cyanocobalamin (vitamin B-12) 1,000 mcg subcut MONTHLY 07/07/21 07/14/23 01/05/22 1,000 mcg/mL injection solution amoxicillin 500 mg capsule 2,000 mg (4 x 500 mg) PO ONCE #4 06/06/22 07/14/23 Unknown caps acetaminophen 500 mg tablet 1,000 mg PO Q8H PRN prn 07/05/22 07/14/23 Unknown (Tylenol Extra Strength) liothyronine 5 mcg tablet 5 mcg PO QAM #90 tabs 10/17/22 07/14/23 Unknown ergocalciferol (vitamin D2) 1,250 50,000 unit PO WEEKLY #13 caps 11/23/22 07/14/23 Unknown mcg (50,000 unit) capsule folic acid 1 mg tablet 1 mg PO QAM 03/22/23 07/14/23 Unknown celecoxib 200 mg capsule (Celebrex) 200 mg PO BID PRN pain #60 caps 06/01/23 07/14/23 Unknown tramadol 50 mg tablet 50 mg PO Q8H PRN pain #30 tabs 06/05/23 07/14/23 Unknown levothyroxine 50 mcg tablet 50 mcg PO QAM 07/14/23 07/14/23 Unknown metformin 750 mg tablet,extended 750 mg PO QAM 07/14/23 07/14/23 Unknown release 24 hr verapamil 80 mg tablet 80 mg PO UD 07/14/23 07/14/23 Unknown Past Medical History Medical History Abdominal aortic aneurysm (AAA) 3.0 cm to 5.0 cm in diameter in female Under surveillance with CTS Abdomen/Pelvis CT 01/2022: No significant change in the 3.6 cm infrarenal abdominal aortic aneurysm Atherogenic dyslipidemia Benign essential hypertension Compression fracture of T12 vertebra T12, chronic per 05[place]2023 [facility] [place] COPD (chronic obstructive pulmonary disease) Per remote records, patient denies Disc degeneration, lumbar Dysphagia Chronic, rare issue- improved since dilation Hx esophageal dilation x3 History of basal cell carcinoma History of kidney stones Passed on own History of SCC (squamous cell carcinoma) of skin Hypothyroidism Adriana's Insulin resistance Taking metformin Iron deficiency anemia Irritable bowel syndrome with diarrhea Lumbar radiculopathy Multiple pulmonary nodules determined by computed tomography of lung Osteoarthritis Osteoporosis PAD (peripheral artery disease) Per records Peripheral neuropathy Chronic, RLE Pernicious anemia Chronic, Monthly B12 injections Sacroiliitis Exercise / Class Metabolic Activity II 4-5 Yardwork/Stairs/Walk up hill (One FS: No CP, no SOB) Past Family History Family History Son Diabetes Mother Lung cancer Stroke Sister Malignant melanoma Son Adverse anesthesia outcome Father Myelofibrosis Aortic aneurysm and dissection Denies family history of Ovarian cancer Prostate cancer Myocardial infarction Breast cancer Colorectal cancer Past Surgical History Surgical History Family history of reaction to anesthesia Son: WTE reaction (unknown details) in dental office, surgery stopped and [place] [facility] [place]. No further details provided to her/available per patient. History of anesthesia reaction Left CHRISTOPHER: "extremely numb" for 2 days after spinal anesthesia (06/2022, [facility]) Revision left CHRISTOPHER: post-op hypotension History of appendectomy History of bilateral cataract extraction History of section History of cholecystectomy History of colonoscopy History of esophageal dilatation History of esophagogastroduodenoscopy (EGD) History of hip surgery History of hysterectomy History of laparoscopy History of lumbar fusion L4-5 History of total left hip arthroplasty Hx of cardiac catheterization 12/2021- no stents, "Normal Coronary Arteries" S/P total hip arthroplasty Status post epidural steroid injection Past Anesthesia History Other (Left CHRISTOPHER: "extremely numb" for 2 days after spinal anesthesia (06/2022, [facility]), Revision left CHRISTOPHER: post-op hypotension) * Patient: Left CHRISTOPHER- "extremely numb" for 2 days after spinal anesthesia (06/2022, [facility]), Revision left CHRISTOPHER- post-op hypotension * Son: WTE reaction 20 years ago (unknown details) in dental office, surgery stopped and r/s to be done at surgery center as outpatient without issue. No further details provided to her/available per patient. History of PONV No Hx of PONV and No Hx of Motion Sickness Social History Smoking Status: Never smoker Do You Dip or Chew Tobacco: No Hx Alcohol Use: No Hx Substance Use: No substance use type: does not use Review of Systems Patient denies chest pain, shortness of breath, dyspnea on exertion, fever, chills, cough, wheezing, palpitations. Physical Exam Vital Signs BP 117/66 P 69 TEMP 98.5 SP02 95%RA RESP 18 Physical Full cervical extension range of motion. Full TMJ range of motion. TMD 3 finger breaths Mallampati Score 2 Dentition: missing side/molars, + caps/crowns Lungs: clear throughout to auscultation Cardiac: regular rate and rhythm, no murmurs noted Spine: normal Carotid arteries: negative bruit Extremities: no LE edema Lab Results Anesthesia Preop Results Results Anesthesia Widget: WBC 9.50 K/ul (4.8-10.8) 08/03/23 Hgb 13.1 g/dl (12.0-16.0) 08/03/23 Hct 39.1 % (37.0-47.0) 08/03/23 Plt 191 K/uL (130-400) 08/03/23 Na 138 mmol/L (136-145) 08/03/23 K 4.2 mmol/L (3.5-5.1) 08/03/23 Cl 104 mmol/L (98-107) 08/03/23 CO2 29 mmol/L (21-32) 08/03/23 BUN 19 mg/dl (6-23) 08/03/23 Creat 0.65 mg/dl (0.6-1.2) 08/03/23 Glucose Level 89 mg/dl (70-99(Fasting)) 08/03/23 PT 10.3 Seconds (9.0-12.0) 08/03/23 PTT 27 Seconds (21-31) 08/03/23 INR 0.9 (0.9-1.1) 08/03/23 HA1c 5.7 % (4.5-5.6) H 08/03/23 Blood Type O Positive 08/03/23 Antibody Screen NEGATIVE 08/03/23 Testing Electrocardiogram Date: 08/03/23 SB at 57bpm. "Otherwise normal ECG" Chest X-Ray Date: 08/03/23 FINDINGS: No lines and tubes are seen. Calcified aortic knob is seen. Elevation of the right hemidiaphragm is seen. The lungs are clear. No evidence of pleural effusion or pneumothorax. IMPRESSION: Elevation of right hemidiaphragm without acute abnormalities. Echocardiogram Date: 12/15/21 EF 60-65%. Borderline asymmetric LVH. No RWMA. No significant valvular disease. "This was essentially a normal study." Echo reviewed by cardio at subsequent cardiology visit 12/15/21, "Echocardiogram does not reveal an etiology for her shortness of breath. No valve disease and normal EF." Heart cath done 12/22/21 for evaluation of chest pain + abnormal stress test which showed normal coronary arteries. Stress Test Date: 12/10/21 1. There is mild breast attenuation and increased GI and liver uptake. Also noted evidence of right hemidiaphragm elevation. This is a fair quality study with multiple sources of artifact. 2. Gated MPI demonstrates normal wall motion and normal EF (72%). 3. There is a medium sized, mild to moderate intensity, predominantly fixed MPI defect of the mid to distal anterior, anteroseptal, anterolateral, and apical myocardium. This suggests infarct with minimal to mild meena-infarct ischemia. However, given the limitations of this study this may certainly represent artifact. 4. Study is moderately abnormal with mild ischemia. No prior studies for comparison. Could consider definitive evaluation by coronary angiography as clinically indicated. Discuss further with cardiology and patient. *Subsequent cardiac cath performed 12/22/2021* Cardiac Catheterization Date: 12/22/21 Dominant: Right LAD (% Stenosis): Normal D1 (% Stenosis): Normal D2 (% Stenosis): Normal Circumflex (% Stenosis): Normal OM1 (% Stenosis): Normal OM2 (% Stenosis): Normal L PL1 (% Stenosis): Normal RCA (% Stenosis): Normal R PDA (% Stenosis): Normal R PL1 (% Stenosis): Normal Ramus (% Stenosis): Normal Left Ventricular Angiography: EF (%): 65% Post-Procedure Diagnosis: Normal Coronary Arteries Recommendations: Medical Therapy and/or Counseling
--- NOTE | 2023-08-24 14:55 | History & Physical Report ---
Date of Service August 24, 2023 Assessment & Plan (1) Rotator cuff arthropathy of left shoulder: We will proceed with a left reverse shoulder arthroplasty. Postoperatively she will be placed in a sling and kept overnight in the hospital for postop medical management. She plans to use energy physical therapy upon discharge. History of Present Illness Chief Complaint: Cuff tear arthropathy of left shoulder. Primary Care Provider: Carlos Crawford III, MARIALUISA Maldonado a pleasant 72-year-old female who has been dealing with pain and decreased function of her left shoulder. She denies any traumatic events. She is having trouble doing forward elevation of her left shoulder. MRI and clinical examination were diagnostic for massive retracted rotator cuff tear of the left shoulder. After failing conservative treatment, she has elected proceed with a left reverse shoulder arthroplasty. Allergies Allergy/AdvReac Type Severity Reaction Status Date / Time indigotindisulfonic acid Allergy Intermediate Rash, Verified 08/22/23 07:32 itching oxycodone AdvReac Severe Severe Verified 08/22/23 07:32 confusion alendronate sodium AdvReac Intermediate Edema Verified 08/22/23 07:32 [From Fosamax] Home Medications Medication Instructions Recorded Confirmed Type flaxseed oil 1,000 mg capsule 1,000 mg PO QAM 08/10/18 08/22/23 History ferrous sulfate 140 mg (45 mg 140 mg PO QPM 03/01/19 08/22/23 History iron) tablet,extended release (Slow Release Iron) multivitamin 1 cap PO QAM 03/01/19 08/22/23 History aspirin 81 mg tablet,delayed 81 mg PO HS 08/04/20 08/22/23 History release (Adult Aspirin Regimen) cyanocobalamin (vitamin B-12) 1,000 mcg subcut MONTHLY 07/07/21 08/22/23 History 1,000 mcg/mL injection solution amoxicillin 500 mg capsule 2,000 mg (4 x 500 mg) PO ONCE #4 06/06/22 08/22/23 Rx caps acetaminophen 500 mg tablet 1,000 mg PO Q8H PRN prn 07/05/22 08/22/23 History (Tylenol Extra Strength) liothyronine 5 mcg tablet 5 mcg PO QAM #90 tabs 10/17/22 08/22/23 Rx ergocalciferol (vitamin D2) 1,250 50,000 unit PO WEEKLY #13 caps 11/23/22 08/22/23 Rx mcg (50,000 unit) capsule celecoxib 200 mg capsule (Celebrex) 200 mg PO BID PRN pain #60 caps 06/01/23 08/22/23 Rx tramadol 50 mg tablet 50 mg PO Q8H PRN pain #30 tabs 06/05/23 08/22/23 Rx levothyroxine 50 mcg tablet 50 mcg PO QAM 07/14/23 08/22/23 History metformin 750 mg tablet,extended 750 mg PO QAM 07/14/23 08/22/23 History release 24 hr verapamil 80 mg tablet 80 mg PO UD 07/14/23 08/22/23 History biotin [Hair, Skin and Nails PO DAILY 08/22/23 08/22/23 History (biotin)] Past Med/Surg History Problem List Osteoporosis (Chronic) Pernicious anemia (Chronic) Chronic, Monthly B12 injections Hypothyroidism (Chronic) Adriana's Insulin resistance Taking metformin COPD (chronic obstructive pulmonary disease) (Chronic) Per remote records, patient denies Multiple pulmonary nodules determined by computed tomography of lung Iron deficiency anemia (Chronic) Benign essential hypertension (Chronic) Nontraumatic rupture of long head of biceps tendon of right shoulder Rotator cuff arthropathy of left shoulder Chronic constipation Medical History History of kidney stones Passed on own Disc degeneration, lumbar Atherogenic dyslipidemia PAD (peripheral artery disease) Per records Compression fracture of T12 vertebra T12, chronic [place] [facility] [place] Sacroiliitis Abdominal aortic aneurysm (AAA) 3.0 cm to 5.0 cm in diameter in female Under surveillance with CTS Abdomen/Pelvis CT 01/2022: No significant change in the 3.6 cm infrarenal abdominal aortic aneurysm Lumbar radiculopathy Dysphagia Chronic, rare issue- improved since dilation Hx esophageal dilation x3 History of SCC (squamous cell carcinoma) of skin History of basal cell carcinoma Irritable bowel syndrome with diarrhea Peripheral neuropathy Chronic, RLE Osteoarthritis Surgical History History of esophageal dilatation History of anesthesia reaction Left CHRISTOPHER: "extremely numb" for 2 days after [place] anesthesia [place] [facility] [place] Revision left CHRISTOPHER: post-op hypotension Family history of reaction to anesthesia Son: WTE reaction (unknown details) in dental office, surgery stopped and r/s to be done at [facility] [place] as outpatient. No further details provided to her/available per patient. History of hip surgery Hx of cardiac catheterization 12/2021- no stents, "Normal Coronary Arteries" History of esophagogastroduodenoscopy (EGD) History of bilateral cataract extraction Status post epidural steroid injection History of total left hip arthroplasty S/P total hip arthroplasty History of colonoscopy History of laparoscopy History of lumbar fusion L4-5 History of hysterectomy History of section History of cholecystectomy History of appendectomy Family History Son Diabetes Mother Lung cancer Stroke Sister Malignant melanoma Son Adverse anesthesia outcome Father Myelofibrosis Aortic aneurysm and dissection Denies family history of Ovarian cancer Prostate cancer Myocardial infarction Breast cancer Colorectal cancer Social History Smoking Status: Never smoker Second Hand Exposure: No; Do You Dip or Chew Tobacco: No; Tobacco Cessation Education Requested by Patient: No Hx Alcohol Use: No Hx Substance Use: No Preferred Language: Ukrainian Communication Ability: Effective Visual Impairment: No Limitations Hearing Ability: Normal Contracts Officer Required: No Beliefs That Will Affect Care: None marital status: Single Current Living Situation: Family Current Living Situation Comment: Lives with grandson current occupational status: employed current occupation: Employed at [employer] How many Children do You have: 5 Other Information That Helps Us Care for You: No Feels Safe at Home: Yes Safety Concerns: Feels Safe At This Time Childhood Exposure to Second-Hand Smoke: Yes Diet: regular caffeine: Yes during the past year weight has: remained stable Dental Care, Regularly: Yes Physical Activity Frequency: Does not Exercise Seatbelt Use: always Sunscreen Use: Yes Do you think of yourself as: straight/heterosexual Assistive Devices: Cane and Glasses Review of Systems All systems reviewed & are unremarkable except as noted in HPI & below. Physical Exam Physical examination left shoulder, she has a pseudoparalysis with about 20 degrees of forward elevation 20 degrees of abduction. She has dense weakness throughout.. Constitutional WD/WN, vitals as above Eyes PERRL, conjunctivae normal, anicteric sclerae ENMT external ear and nose normal, oropharynx normal Neck trachea midline, no thyromegaly Respiratory normal respiratory effort Cardiovascular RRR, no murmur, no edema Gastrointestinal (Abdomen) normal bowel sounds, soft, nontender, no hepatosplenomegaly Psychiatric A+Ox3, euthymic affect Results & Data Results & Data Laboratory Results . Diagnostic Findings X-rays of the left shoulder show superior migration of the humeral head and the glenoid MRI of the left shoulder shows a massive retracted rotator cuff tear.. PG Care Time/CCT Total # of Minutes Spent Total Time Spent with Patient: Total time spent is greater than 50% in coordination of care (as documented) at patient's floor/unit and/or counseling patient: Coding Level of Care Code None Diagnoses Rotator cuff arthropathy of left shoulder M12.812
[~2023-08-28 09:38] MED LIST changes: -ASPI-435 PO; +BUPIVACAINE 0.5 % 5 MG/1 ML PF 10ML VIAL ONE; -CHOLPOW PO; -CYAN1DRO SC; -ERGO500037 PO; -FLAX1CAP11 PO; -GLC/500 PO; -LEVO50TA PO; -LIDOCAINE HCL 2% 2 ML VIAL (20MG/ML) ONE; -LIOT5TAB9 PO; -MULT-506 PO; -PROPOFOL IV EMULSION 10 MG/ML 20 ML VIAL ONE; -SODIUM CHLORIDE 0.9% 500ML 500 ML IV ONE; -TRMO115 TOP; -VERA120T15 PO
[2023-08-28] MEDS ORDERED: MIDAZOLAM HCL 1 MG/ML 2ML VIAL ONE (09:49)
[2023-08-28] MEDS ORDERED: fentaNYL citrate PF 100 MCG/2 ML VIAL ONE (09:50)
--- NOTE | 2023-08-28 10:17 | History & Physical Bridge Note ---
Date of Service August 28, 2023 History & Physical Bridge Note I have examined the patient, reviewed the History & Physical and in the interval since the performance of the History & Physical I have noted the following changes of clinical significance: no changes noted
[2023-08-28] MEDS: LR 60ML/HR IV SCH (10:19)
[2023-08-28] MEDS: LR 15ML/HR IV SCH (10:19)
[2023-08-28] MEDS: dexAMETHasone**PF** 10 MG/ML VIAL IV SCH (10:21)
[2023-08-28] MEDS: GABAPENTIN 300 MG CAP PO SCH (10:23)
[2023-08-28] MEDS: ACETAMINOPHEN 500 MG TAB PO SCH ×2 (10:23→15:57)
[2023-08-28] MEDS: FAMOTIDINE 20 MG TAB PO SCH (10:24)
[2023-08-28] MEDS ORDERED: PROPOFOL IV EMULSION 10 MG/ML 20 ML VIAL IV ONE (10:46)
[2023-08-28] MEDS ORDERED: LIDOCAINE 2% 2 ML VIAL/AMP(20MG/ML) INFIL ONE (10:46)
[2023-08-28] MEDS ORDERED: DEXAMETHASONE SOD INJ 4 MG/ML VIAL ONE (10:46)
[2023-08-28] MEDS ORDERED: ONDANSETRON INJ 2 MG/ML 2 ML VIAL ONE (10:46)
[2023-08-28] MEDS ORDERED: fentaNYL citrate PF 100 MCG/2 ML VIAL IV PRN (10:48)
[2023-08-28] MEDS ORDERED: ATROPINE SULFATE 0.1 MG/ML 10ML SYR IV PRN (10:48)
[2023-08-28] MEDS ORDERED: ePHEDrine sulfate 50 MG/ML AMP IV PRN (10:48)
[2023-08-28] MEDS ORDERED: ONDANSETRON INJ 2 MG/ML 2 ML VIAL IV PRN ×2 (10:48→13:37)
[2023-08-28] MEDS ORDERED: ROPIVACAINE 0.5% 5 MG/ML 30 ML VIAL ONE (11:01)
[2023-08-28] MEDS ORDERED: SODIUM CHLORIDE 0.9% PF INJ 10 ML VIAL ONE (11:02)
[2023-08-28] MEDS: TRANEXAMIC ACID 1,000 MG **IV Pre-op IV SCH (11:09)
[2023-08-28] MEDS: ceFAZolin 2000MG 2,000 MG/15 ML SYR IV SCH ×2 (11:18→18:04)
[2023-08-28] MEDS ORDERED: ePHEDrine sulfate 50 MG/5 ML SYR ONE (11:37)
[2023-08-28] MEDS: ROPIV 0.5% 246mg, Ketorolac 30mg, EPINEPHrine 0.5mg in NSS INFIL SCH (11:53)
[2023-08-28] MEDS: ORTHO JOINT ANESTHETIC ONE (11:54)
[2023-08-28] MEDS ORDERED: KETOROLAC 30 MG/ML VIAL ONE (11:59)
[2023-08-28] MEDS: TRANEXAMIC ACID 1,000 MG **IV Intra-op IV SCH (12:08)
--- NOTE | 2023-08-28 12:09 | Operative Report ---
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 Postoperative diagnosis: Cuff tear arthropathy left shoulder with tendinopathy long head of the biceps tendon I identified the patient and participated in the time-out.: Yes Procedure Operation Date: 08/28/23 11:00 Actual Procedures p Left Reverse Total Shoulder Arthroplasty(Left) - Arian Madrigal DO Surgeon Arian Madrigal DO Asset Administrator Arian Maguire PA-C Estimated Blood Loss 200 Findings Consistent with Post-Op Diagnosis Specimens Left humeral head Description of Procedure A CPT code modifier 59: The long head of the biceps tendon was enlarged and inflamed consistent with tendinopathy. A tenodesis was opted. This was a separate and distinct portion of the procedure. For these reasons, a CPT code modifier 59 will be added to this case. Implants used: I used a [employer] Comprehensive reverse total shoulder arthroplasty system with a size 11 press fit micro humeral stem, a +6 offset humeral tray and a standard humeral bearing, a 25 mm baseplate with a 6.5 mm central screw and superior and inferior locking screws, and a size 36 mm eccentric glenosphere. Erica arrived at [facility] for the above procedure. She was seen in the preoperative holding area and the operative extremity was identified and signed. She was given a preoperative antibiotic, TXA, and an interscalene nerve block. She was taken back to the operating room, laid on table in supine position, and put under general anesthesia. She was then put into the beachchair position. The shoulder was then prepped and draped in sterile fashion. A timeout was done and the patient and the operative extremity was properly identified. A deltopectoral approach was used. Dissection was taken down through the fascia and the deltoid was retracted laterally and the conjoined tendon was retracted medially. The anterior shoulder was exposed. The biceps groove was opened up and the biceps tendon was examined extensively. The biceps tendon demonstrated enlargement and inflammatory changes consistent with longstanding inflammation in the context of osteoarthritis and cuff arthropathy. The long head of the biceps tendon was then tenodesed to the upper border of the pectoralis major. This was a separate and distinct portion of the procedure. The subscapularis was then directly released off the lesser tuberosity with a peel technique. The inferior capsule was released and the humeral head was dislocated. A canal finding reamer was sent down the center of the humeral canal. Sequential reaming up to a size 11 reamer was done. Off that reamer, a proximal humeral resection guide was placed. The proximal humerus was resected at 135 of inclination and 25 of retroversion. Osteophytes were then removed and the glenoid was exposed. Time was spent doing a complete capsular and labral release. The glenoid guide was then placed in the inferior aspect of the glenoid. A 3.2 mm Steinmann pin was then placed into the glenoid vault at 10 of inclination. The glenoid baseplate was then reamed. The final size 25 mm baseplate was then impacted in the place. A 6.5 mm central screw was then placed followed by superior and inferior locking screws. A 36 mm eccentric glenosphere was then impacted into place. Surrounding soft tissues were then injected with 100 cc an orthopedic pain control cocktail. The proximal humerus was then exposed. Sequential broaching of the humerus up to a size 11 broach was done. Off that broach a +6 offset humeral tray was trialed. The shoulder was then reduced, brought through a full range of motion, and felt to be stable. The shoulder was then dislocated and the broach was removed. The final size 11 micro press-fit humeral stem was then impacted into place. A standard humeral bearing was then snapped onto a +6 offset humeral tray. The humeral tray was then impacted onto the humeral stem. The shoulder was once again reduced, brought through a full range of motion, and felt to be stable. The subscapularis was poor quality and unable to be repaired. A dilute betadyne lavage was then done for 3 minutes. The joint was then irrigated with normal saline solution. Hemostasis was obtained. The interval was closed with 2-0 Vicryl suture. The skin was then closed with 2-0 Vicryl and osvaldo. A Silverlon dressing was placed and the arm was rested in a regular arm sling. She was then extubated and transferred to a hospital bed. She taken to the postanesthesia care unit in stable condition. She tolerated the procedure well. Arian Maguire PA-C, was present for the entire procedure. He was critical for patient positioning, prepping, draping, retraction exposure, wound closure and application of sterile dressing. I attest to the content of the Intraoperative Record and any orders documented therein. Any exceptions are noted below.
--- NOTE | 2023-08-28 13:25 | Anesthesiology Progress Note ---
Date of Service August 28, 2023 Anesthesia Post Procedure Vital Signs Vital Signs: Temp Pulse Pulse Resp BP Pulse Ox O2 Del Method 08/28/23 13:05 63 13 110/53 L 100 Oxymask 08/28/23 12:55 74 14 123/53 L 100 Oxymask 08/28/23 12:45 88 19 114/61 100 Oxymask 08/28/23 12:35 77 16 111/49 L 100 Oxymask 08/28/23 12:26 97.7 F 93 H 20 134/53 L 100 Oxymask 08/28/23 12:05 63 13 110/53 L 99 Room Air 08/28/23 10:03 98.2 F 65 18 142/67 H 97 Room Air O2 Flow Rate 08/28/23 13:05 6 08/28/23 12:55 6 08/28/23 12:45 6 08/28/23 12:35 6 08/28/23 12:26 6 08/28/23 12:05 08/28/23 10:03 Pain Intensity Left Shoulder: Pain Intensity: 6 Transfer of Care Handoff Completed per policy Notes Mental Status: alert / awake / arousable and participated in evaluation Patient Amnestic to Procedure: Yes Nausea / Vomiting: adequately controlled Pain: adequately controlled Airway Patency, RR, SpO2: stable & adequate BP & HR: stable & adequate Hydration State: stable & adequate Anesthetic Complications: no major complications apparent and Pt Satisfied with anesthetic care
[2023-08-28] MEDS ORDERED: PHARMACY GLYCEMIC MGMT CONSULT PRN (13:37)
[2023-08-28] MEDS ORDERED: METOCLOPRAMIDE HCL INJ 5 MG/ML 2 ML VIAL IV PRN (13:37)
[2023-08-28] MEDS ORDERED: NALOXONE HCL 0.4 MG/1 ML VIAL/CARP IV PRN (13:37)
[2023-08-28] MEDS ORDERED: bisacodyL 10 MG SUPP PR PRN (13:37)
[2023-08-28] MEDS ORDERED: MAGNESIUM HYDROXIDE SUSP 30 ML UDC PO PRN (13:37)
--- NOTE | 2023-08-28 14:28 | Pharmacy Report ---
Pharmacy Glycemic Short Note 2 - Date of Service August 28, 2023 - Glycemic Short BSG Results (Last 24 hours): 08/28/23 10:18 POC Glucose 88 OUTPATIENT ANTIDIABETIC REGIMEN: * metformin 750 mg qam ASSESSMENT: * 72 year old now s/p surgery, POD 0 - pharmacy consulted for glycemic management. Patient only on metformin at home. However, did receive IV dexamethasone preop therefore anticipate steroid induced hyperglycemia. Will start novolog now stress in between 2-3 weight based scale. Will consider adding on long acting insulin if postop BSG >160 PLAN FOR INPATIENT GLYCEMIC CONTROL: * Hold outpatient oral diabetes medications * Basal insulin * Lantus - hold * Bolus insulin * NovoLog per scale ACHS or Q6hrs while NPO * Goal Range: Low 110 mg/dL - High 140 mg/dL * Correction Factor: 30 mg/dL/unit * Nutritional / Prandial insulin per carb ratio of 1 unit per 11 grams CHO consumed
[2023-08-28] MEDS ORDERED: GLUCOSE 40% GEL 15 GM TUBE PO PRN (14:30)
[2023-08-28] MEDS ORDERED: GLUCOSE 10 TAB/TUBE PO PRN (14:30)
[2023-08-28] MEDS ORDERED: DEXTROSE 50% 50 ML SYRINGE IV PRN (14:30)
[2023-08-28] MEDS ORDERED: GLUCAGON FOR INJ 1 MG VIAL IM PRN (14:30)
[2023-08-28] MEDS ORDERED: CARBOHYDRATES FOR HYPOGLYCEMIA PO PRN (14:30)
[2023-08-28] MEDS: SODIUM CHLORIDE 0.9% 1,000 ML IV SCH (15:58)
[2023-08-28] MEDS: KETOROLAC TROMETHAMINE 15 MG/ML VIAL IV SCH (15:58)
--- NOTE | 2023-08-28 17:38 | XRay Report ---
LEFT SHOULDER 2 VIEWS CLINICAL HISTORY: Postoperative examination. FINDINGS: 2 portable views of the left shoulder are compared to study dated 06/21/2023. The skeletal s tructures are osteopenic. A left shoulder arthroplasty is in near anatomic alignment. No acute fractu re is seen. Skin clips, subcutaneous gas, and soft tissue swelling overlying the left shoulder are ex pected postsurgical changes. Productive degenerative change is noted at the acromioclavicular joint. Numerous left lung parenchyma appears clear. IMPRESSION: Expected postoperative findings status post left shoulder arthroplasty. No acute fracture is seen. Electronically signed by: Don Jerry M.D. 08/28/2023 5:37 PM
[2023-08-28] MEDS: INSULIN ASPART PER UNIT CHARGE SC SCH (17:56)
[2023-08-28] MEDS: FERROUS SULFATE 325 MG TAB PO SCH (20:11)
[2023-08-28] MEDS: DOCUSATE SODIUM 100 MG CAP PO SCH (20:11)
[2023-08-28] MEDS: SENNA 8.6 MG TAB PO SCH (20:11)
[2023-08-28] MEDS: VERAPAMIL HCL 40 MG TAB PO SCH (20:12)
[2023-08-29] MEDS: traMADol HCL 50 MG TABLET PO PRN (03:24)
[2023-08-29] MEDS: HYDROmorphone INJ 0.5 MG/0.5 ML SYR IV PRN (04:59)
[2023-08-29] MEDS: LEVOTHYROXINE SODIUM 50 MCG TABLET PO SCH (05:03)
--- NOTE | 2023-08-29 06:45 | Orthopedic Progress Note ---
Date of Service August 29, 2023 Assessment & Plan (1) Status post reverse total replacement of left shoulder: Overall she is doing well. She is not having much pain in the left shoulder. She will be seen by physical therapy today for ambulation and range of motion exercises. She can be discharged home later today. She will follow-up with orthopedics in 2 weeks. Ryan Maldonado was seen and examined at bedside this morning. Overall she doing very well. She is not having much pain in the left shoulder. She was up to get some sleep last night she has no complaints.. Review of Systems All systems reviewed & are unremarkable except as noted in HPI & below. Physical Exam On physical examination of the left shoulder, the dressing is clean and dry. She is wearing her sling as instructed. She has active motion of her hand and her wrist.. Results & Data Results & Data Laboratory Results . Diagnostic Findings Postoperative x-rays of the left shoulder show the prosthesis to be in anatomic alignment without any evidence of fracture, desiccation, or loosening.. PG Care Time/CCT Total # of Minutes Spent Total Time Spent with Patient: Total time spent is greater than 50% in coordination of care (as documented) at patient's floor/unit and/or counseling patient: Coding Level of Care Code 07536 Post Operative Follow-Up Diagnoses Status post reverse total replacement of left shoulder Z96.612
--- NOTE | 2023-08-29 06:46 | Discharge Summary ---
Date of Service August 29, 2023 Admission HPI (Per Admitting) Erica a pleasant 72-year-old female who has been dealing with pain and decreased function of her left shoulder. She denies any traumatic events. She is having trouble doing forward elevation of her left shoulder. MRI and clinical examination were diagnostic for massive retracted rotator cuff tear of the left shoulder. After failing conservative treatment, she has elected proceed with a left reverse shoulder arthroplasty. Admission Exam (Per Admitting) Physical examination left shoulder, she has a pseudoparalysis with about 20 degrees of forward elevation 20 degrees of abduction. She has dense weakness throughout.. Principal Diagnosis Same as "Discharge Diagnosis" noted below under Discharge Instructions. Discharge Exam On physical examination of the left shoulder, the dressing is clean and dry. She is wearing her sling as instructed. She has active motion of her hand and her wrist.. Discharge Data Procedures Performed Operation Date: 08/28/23 11:00 Actual Procedures p Left Reverse Total Shoulder Arthroplasty(Left) - Arian Madrigal DO Ordered Studies 08/28/23 11:07 US - OR guided needle placemen Routine Hospital Course (1) Status post reverse total replacement of left shoulder: On August 28, 2023 Erica arrived at [facility] and underwent a left reverse shoulder replacement without complication. She had a spinal anesthetic and a left interscalene nerve block. Postoperatively she was placed in a sling and transferred to the general orthopedic floors. Her hospital course was uneventful. On postop day #1, her vital signs were stable and her pain was well-controlled. She was able to participate well with physical therapy doing ambulation and range of motion exercises. She was then discharged home. She will follow-up orthopedics in 2 weeks. PG Care Time/CCT Total # of Minutes Spent Total Time Spent with Patient: Total time spent is greater than 50% in coordination of care (as documented) at patient's floor/unit and/or counseling patient: Discharge Plan Discharge Items Patient Disposition: Home - Self-Care Reason For Visit: Degenerative Joint Disease Left Shoulder Discharge Diagnosis: Left reverse shoulder replacement Activity: Per Instructions section Non-emergency contact: Surgeon Call non-emergency contact if: your wound has increased redness and your wound has increased drainage Follow-up/Referrals: Carlos Crawford III, CRNP [Primary Care Provider] - Diet: Regular Addtl Attending Provider Instructions: Activity and Therapy Recommendations: * If you are using [facility] then therapy will be provided at your home until they feel you have accomplished all of your goals. * If you are using [facility] then Physical Therapy will be provided until they feel you are ready to start Outpatient Physical Therapy. * If you are not using home therapy then Outpatient Physical Therapy should start about 3-5 days from your day of surgery. Therapy will last about 8-12 weeks * Wear your sling for 3 weeks, unless otherwise instructed. You may remove your sling to shower and to dress, but otherwise, you should be in your sling at all times, including while sleeping * The shoulder replacement is very stable and you can use your hand while in the sling * You were shown a series of exercises in the hospital. Do these exercises daily including the exercises you were shown in physical therapy. Medications: * Narcotic You will likely be sent home from the hospital with a prescription for the narcotic pain medication that worked best throughout your stay. * Cefadroxil -take the antibiotic twice a day for 10 days to help prevent infection. * Other medications may be prescribed for specific circumstances. If you have any questions, please call the office at . * Resume previous home medications unless otherwise instructed Dressing Care: Leave the Silverlon dressing in place for 7 days. After 7 days you may remove the dressing. If the incision is not draining then you may leave the osvaldo open to air. If there is a little bit of drainage or if the osvaldo are getting stuck on your clothing then cover the incision with a dry dressing. The osvaldo will be removed at your 2 week follow-up appointment. Showering: You may shower with the Silverlon dressing in place. Do not let the shower spray hit the dressing directly. Pat the Silverlon dressing dry. If the dressing becomes wet underneath, then simply remove the dressing. Keep the incision dry until you are 7 days out from the day of surgery. After 7 days you may remove the Silverlon dressing and shower with the osvaldo exposed. Let soapy water run over the osvaldo and pat them dry. Do not scrub or soak the incision. Things To Watch For: * Drainage from the incision site that occurs more than one week after your surgery. * Increased redness at the incision site. * Fever above 102 degrees Fahrenheit. * Unusual chest pain or shortness of breath. * Call [facility] at with any of the above problems Follow-Up Visit: Follow-up with Dr. Madrigal's PA (Arian Maguire) 2-3 weeks after your day of surgery. He will remove your osvaldo and answer any questions. If you have any additional questions or concerns, Dr Madrigal is usually in the office at the same time and will be available An appointment was probably scheduled when you signed-up for surgery in the office. If you have any questions call More detailed instructions as well as Frequently Asked Questions were provided in a folder by our office when you signed-up for surgery. Please review these instructions when you get home. If you have any further questions or concerns, please feel free to call the office at [phone] Pending Studies at Discharge: No Stand-Alone Forms: My [facility] Medications and DC Order Prescriptions: New cefadroxil 500 mg capsule 500 mg PO BID 10 Days Qty: 20 0RF Continued amoxicillin 500 mg capsule 2,000 mg PO ONCE Qty: 4 1RF Rx Instructions: Take 4 capsules one hour prior to dental procedure. liothyronine 5 mcg tablet 5 mcg PO QAM Qty: 90 3RF ergocalciferol (vitamin D2) 1,250 mcg (50,000 unit) capsule 50,000 unit PO WEEKLY Qty: 13 3RF Patient Comments: MONDAY celecoxib [Celebrex] 200 mg capsule 200 mg PO BID PRN (Reason: pain) Qty: 60 1RF tramadol 50 mg tablet 50 mg PO Q8H PRN (Reason: pain) Qty: 30 0RF aspirin [Adult Aspirin Regimen] 81 mg tablet,delayed release (DR/EC) 81 mg PO HS acetaminophen [Tylenol Extra Strength] 500 mg tablet 1,000 mg PO Q8H PRN (Reason: prn) flaxseed oil 1,000 mg capsule 1,000 mg PO QAM biotin [Hair, Skin and Nails (biotin)] 1 tab PO DAILY Slow Release Iron 140 mg (45 mg iron) Tablet Extended Release 140 mg PO QPM multivitamin Capsule 1 cap PO QAM cyanocobalamin (vitamin B-12) 1,000 mcg/mL solution 1,000 mcg subcut MONTHLY levothyroxine 50 mcg tablet 50 mcg PO QAM Rx Instructions: TAKE 1 TABLET BY MOUTH DAILY metformin 750 mg tablet extended release 24 hr 750 mg PO QAM verapamil 80 mg tablet 80 mg PO UD Rx Instructions: 1 tab in AM, 1.5 tab in PM Discharge Orders: Discharge Order (Routine); Ordered 08/29/23 Ordered By: Arian Madrigal Admission Data Admit Date/Time: 08/28/23 12:28 Attending Provider: Arian Madrigal Admit Provider: Arian Madrigal Primary Care Provider: Carlos Crawford III
[2023-08-29] MEDS: LIOTHYRONINE SODIUM 5 MCG TAB PO SCH (08:35)
[2023-08-29] MEDS: MULTIVITAMIN TAB PO SCH (08:35)
[2023-08-29] MEDS: VERAPAMIL HCL 40 MG TAB PO SCH (08:38)
== END 2023-08-29 10:43 | disposition home or self-care (01) ==
LOC: 3E 09:38 → ASU 09:38